=== PATIENT | male | born 1985 | race African-American/Black ===

== ENCOUNTER 2020-01-01 18:34 | Emergency (ER) | payer SELFPAY ==
[2020-01-01 18:39] VITALS: BP 173/104; PULSE 84; RESP 18; TEMP 36.6; O2SAT 99
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
[2020-01-01] MEDS: KETOROLAC (*BKC) 60 MG/2 ML VIAL IM (20:53)
[2020-01-01 21:05] VITALS: BP 142/96; PULSE 78; RESP 19; O2SAT 97
== END 2020-01-01 21:06 | disposition home or self-care (01) ==
PROVIDERS: Emergency Provider Emergency Medicine
DX: K08.89 Other specified disorders of teeth and supporting structures (principal)
CPT/HCPCS: 96372; 99283; J1885

== ENCOUNTER 2020-03-31 00:56 | Emergency (ER) | payer SELFPAY ==
--- NOTE | ~2020-03-31 | XR_ITS ---
EXAMINATION: XR chest 1V portable INDICATION: Shortness of breath TECHNIQUE: Portable AP chest at 0148 hours COMPARISON: None available FINDINGS: The lungs are free of acute opacities. There is no pleural effusion or pneumothorax. The ca rdiomediastinal silhouette is normal. IMPRESSION: 1. No acute cardiopulmonary abnormality. Reviewed, dictated and finalized at location [facility]. R [employer]
[2020-03-31 01:01] VITALS: BP 145/100; PULSE 104; RESP 18; TEMP 36.1; O2SAT 96
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
[2020-03-31 01:13] VITALS: BP 135/98; PULSE 92; RESP 22; O2SAT 95
[2020-03-31 01:25] VITALS: PULSE 82; RESP 20
[2020-03-31] MEDS: ALBUTEROL SULFATE NEB 2.5 MG/0.5 ML INH 5 MG INHALATION (01:25)
[2020-03-31 01:34] VITALS: PULSE 79; RESP 18
[2020-03-31 01:37] LABS: Basophils Absolute Auto 0.1 K/mm3 (0.0-0.1); Basophils Percent Auto 0.8 % (0.2-1.2); Eosinophils Absolute Auto 0.4 K/mm3 (0-0.3); Eosinophils Percent Auto 6.5 % (0-4.4); Hematocrit 44.5 % (42.0-52.0); Hemoglobin 14.6 g/dL (14.0-18.0); Immature Granulocyte Absolute 0.01 K/mm3 (0.00-0.031); Immature Granulocyte Percent A 0.2 % (0-0.5); Lymphocytes Absolute Auto 2.93 K/mm3 (0.9-3.2); Lymphocytes Percent Auto 44.2 % (18.3-44.2); Mean Corpuscular HGB Conc 32.8 g/dl (32-36); Mean Corpuscular Hemoglobin 26.9 pg (26-34); Mean Platelet Volume 11.3 fl (7.4-10.4); Monocytes Absolute Auto 0.4 K/mm3 (0.1-0.6); Monocytes Percent Auto 6.2 % (2.6-8.5); Neutrophils Absolute Auto 2.8 K/mm3 (1.3-6.7); Neutrophils Percent Auto 42.1 % (45.5-73.1); Platelet Count Result 219 k/mm3 (150-375); Red Blood Count 5.43 M/mm3 (4.6-6.20); Red Cell Distribution Width 12.8 % (11.5-14.5); White Blood Count 6.6 K/mm3 (4.5-10.0)
[2020-03-31 01:54] VITALS: BP 138/99; PULSE 82; RESP 20; O2SAT 97
[2020-03-31 01:55] LABS: NT Pro B Type Natriuretic Pept < 11 PG/ML (5-100)
[2020-03-31] MEDS: predniSONE 20 MG TABLET 40 MG PO (02:14)
[2020-03-31 02:20] LABS: Anion Gap 4 mmol/L (8-16); Blood Urea Nitrogen 12 mg/dL (9-20); Calcium 8.7 mg/dL (8.4-10.2); Carbon Dioxide 27 mmol/L (22-30); Chloride 108 mmol/L (98-107); Estimated CRCL calculation 141 ml/min; Estimated Glomerular Filt Rate > 60; Glucose 185 mg/dL (75-110); Potassium 4.1 mmol/L (3.4-5.0); Sodium 139 mmol/L (137-145)
[2020-03-31 02:37] VITALS: BP 134/90; PULSE 74; RESP 20; O2SAT 97
== END 2020-03-31 02:40 | disposition home or self-care (01) ==
PROVIDERS: Emergency Provider Emergency Medicine
DX: R06.2 Wheezing (principal); Z20.828 Contact with and (suspected) exposure to other viral communicable diseases
CPT/HCPCS: 36415; 71045; 80048; 83880; 85025; 94640; 99283; J7512

== ENCOUNTER 2021-03-04 18:57 | Observation (INO) | payer SELFPAY ==
--- NOTE | ~2021-03-04 | CT_ITS ---
EXAMINATION: CTA chest PE protocol DATE: 03/05/2021 00:26 INDICATION: Shortness of breath, chest pain, elevated d-dimer TECHNIQUE: Computed tomography angiography (CTA) of the chest was performed with 100 mL Omnipaque-350 intravenous contrast timed to evaluate the pulmonary arteries. Coronal maximum intensity projection 3D-reconstructions were created by the technologist. Automated exposure control and iterative reconst ruction technique were employed. Exam dose: 291.98 mGy-cm total exam DLP. COMPARISON: 03/04/2021 portable AP chest FINDINGS: There is diagnostic contrast enhancement of the pulmonary arteries and no evidence of pulmo nary embolism. No thoracic aortic aneurysm or dissection. Normal heart size. No pericardial or pleural effusion. No hilar or mediastinal mass lesion or lymphadenopathy. There are extensive patchy multifocal infiltrates throughout both lungs, greatest involvement of the right lower lobe, consistent with bilateral Covid pneumonia. Included skeletal structures are unremarkable. IMPRESSION: No evidence of pulmonary embolism Extensive patchy multifocal bilateral pulmonary infiltrates, likely due to Covid pneumonia Reviewed, dictated and finalized at [facility]. Reviewed, dictated and finalized at location A. IMPRESSION: No evidence of pulmonary embolism Extensive patchy multifocal bilateral pulmonary infiltrates, likely due to Covi d pneumonia
--- NOTE | ~2021-03-04 | XR_ITS ---
EXAMINATION: XR chest 1V portable EXAM DATE: 03/04/2021 19:35 INDICATION: cough, SOB, Fever X 2 Days, Hx Asthma . TECHNIQUE: Frontal and lateral projections of the chest obtained and reviewed. Comparison is made to prior examination from 03/31/2020. FINDINGS: There are small ill-defined bibasilar opacities most likely acute infectious process, poss ibly COVID pneumonia. No pneumothorax or pleural effusion. Cardiomediastinal silhouette is normal. Th ere are no osseous abnormalities identified. IMPRESSION: Small ill-defined basilar opacities could be developing acute infectious process such as COVID pneumonia Reviewed, dictated and finalized at location G. IMPRESSION: Small ill-defined basilar opacities could be developing acute infec tious process such as COVID pneumonia
[2021-03-04 19:01] VITALS: BP 144/79; PULSE 113; RESP 18; TEMP 35.8; O2SAT 96
--- NOTE | 2021-03-04 20:27 | ECG_ITS ---
Measurements Intervals [place] Rate: 101 P: 47 LA: 104 QRS: 38 QRSD: 77 T: 34 QT: 325 QTc: 421 Interpretive Statements SINUS TACHYCARDIA WITH SHORT LA INTERVAL POSSIBLE LEFT ATRIAL ENLARGEMENT INCOMPLETE RIGHT BUNDLE BRANCH BLOCK BASELINE ARTIFACT- II, III, AVF, V3-V6 BORDERLINE ECG Electronically Signed On 03-05-2021 7:32:37 CDT by Ender Nicolas D.O.
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
[2021-03-04] MEDS: ALBUTEROL SULFATE (*SP) AEROSOL 1 PUFF 4 PUFF INHALATION (20:58)
[2021-03-04 21:14] VITALS: BP 138/92; PULSE 108; RESP 22; O2SAT 96
[2021-03-04 21:33] VITALS: TEMP 38.2
[2021-03-04] MEDS: SODIUM CHLORIDE 0.9% IV 1,000 ML 999 ML IV CONT ×2 (21:34→23:55)
[2021-03-04 21:53] LABS: Basophils Percent Auto 0.3 % (0.2-1.2); Eosinophils Percent Auto 0.1 % (0-4.4); Hematocrit 48.4 % (42.0-52.0); Hemoglobin 15.9 g/dL (14.0-18.0); Immature Granulocyte Absolute 0.03 K/mm3 (0.00-0.031); Immature Granulocyte Percent A 0.4 % (0-0.5); Lymphocytes Absolute Auto 2.11 K/mm3 (0.9-3.2); Lymphocytes Percent Auto 31.4 % (18.3-44.2); Mean Corpuscular HGB Conc 32.9 g/dl (32-36); Mean Corpuscular Hemoglobin 27.9 pg (26-34); Mean Corpuscular Volume 84.9 fl (80-100); Monocytes Absolute Auto 0.5 K/mm3 (0.1-0.6); Neutrophils Absolute Auto 4.1 K/mm3 (1.3-6.7); Neutrophils Percent Auto 60.8 % (45.5-73.1); Platelet Count Result 163 k/mm3 (150-375); Red Cell Distribution Width 11.9 % (11.5-14.5); White Blood Count 6.7 K/mm3 (4.5-10.0)
[2021-03-04 22:04] LABS: INR 0.8; Prothrombin Time 11.2 Seconds (11.1-14.7)
[2021-03-04 22:05] LABS: Partial Thromboplastin Time 22.9 SECONDS (22.3-36.8)
[2021-03-04 22:07] LABS: D Dimer 0.49 ug/mL (<0.48)
[2021-03-04 22:10] VITALS: BP 138/90; PULSE 95; RESP 23; O2SAT 97
[2021-03-04 22:18] LABS: Alanine Aminotransferase 17 U/L (4-50); Albumin Level 4.4 g/dL (3.5-5.1); Alkaline Phosphatase 150 U/L (38-126); Anion Gap 17 mmol/L (8-16); Aspartate Amino Transferase 27 U/L (17-59); Bilirubin,Total 0.9 mg/dL (0.2-1.3); Blood Urea Nitrogen 10 mg/dL (9-20); Calcium 9.6 mg/dL (8.4-10.2); Carbon Dioxide 20 mmol/L (22-30); Chloride 101 mmol/L (98-107); Estimated CRCL calculation 110 ml/min; Estimated Glomerular Filt Rate > 60; Glucose 411 mg/dL (65-110); Lactate Dehydrogenase 684 U/L (313-618); Potassium 4.4 mmol/L (3.4-5.0); Sodium 138 mmol/L (137-145)
[2021-03-04 22:21] LABS: Troponin I < 0.012 ng/mL (0.000-0.034)
[2021-03-04 22:47] VITALS: BP 130/87; PULSE 98; RESP 24; TEMP 37.2; O2SAT 98
[2021-03-04 23:21] LABS: Procalcitonin 0.1 ng/mL
[2021-03-04 23:54] VITALS: BP 107/83; PULSE 85; RESP 19; O2SAT 97
--- NOTE | 2021-03-04 23:54 | PC.NURSE ---
per lab we could not get an A1C as the machine states it is reading too high. Our high end is 14.
[2021-03-05] VITALS (8 sets, daily range): BP systolic 110–128; BP diastolic 63–87; PULSE 91–96; RESP 16–22; TEMP 36.7–38.3; O2SAT 93–99; BMI 28.5
[2021-03-05 00:01] LABS: Glucose Point of Care 341 mg/dl (65-105)
[2021-03-05 00:11] LABS: Add Urine Microscopic? YES; Appearance Urine Clear (Clear); Bilirubin Urine Negative (Negative); Blood Urine Negative (Negative); Color Urine Colorless (Yellow); Glucose Urine UA 3+ mg/dL (Negative); Ketones Urine 2+ mg/dL (Negative); Leukocyte Esterase Ur Negative LEU/UL (Negative); Mucus Urine Rare /lpf; Nitrate Urine Negative (Negative); Protein Urine Negative (Negative); RBC Urine 0-2 /hpf (0-2); Urobilinogen Urine Negative mg/dL (<2.0)
[2021-03-05] MEDS: INSULIN HUMAN REGULAR (*BKC) 100 UNITS/ML 9 UNITS IV PUSH (00:21)
[2021-03-05 01:00] LABS: Anion Gap 14 mmol/L (8-16); Blood Urea Nitrogen 9 mg/dL (9-20); Calcium 8.4 mg/dL (8.4-10.2); Carbon Dioxide 21 mmol/L (22-30); Chloride 106 mmol/L (98-107); Estimated CRCL calculation 110 ml/min; Estimated Glomerular Filt Rate > 60; Glucose 292 mg/dL (65-110); Potassium 3.9 mmol/L (3.4-5.0); Sodium 141 mmol/L (137-145)
[2021-03-05 01:10] LABS: Cholesterol 184 mg/dL (0-200); HDL Direct 34 mg/dL; Triglycerides 373 mg/dL (<150)
[2021-03-05 01:21] LABS: LDL Cholesterol Direct 46 mg/dL
[2021-03-05 01:25] LABS: Glucose Point of Care 264 mg/dl (65-105)
--- NOTE | 2021-03-05 03:24 | ADMGEN ---
This patient, Sylvain Tapia, was admitted to 3 [facility] Surg Room 332-01. Patient/family oriented to hospital policies and general routines including ID bracelet, bed and alarms, visiting hours, pain management, procedures, bathroom and other care routines, personal items, smoking policy, room service/diet, and visiting hours. Information on how to activate the Rapid Response Team has been discussed. Patient/Family are encouraged to report perceived risks to care and to ask questions if they do not understand what they are told or what they should do.
[2021-03-05 07:59] LABS: Glucose Point of Care 268 mg/dl (65-105)
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
[2021-03-05] MEDS: INSULIN ASPART (*BKC) 100 UNITS/ML SUB-Q ×3 (09:30→17:34)
[2021-03-05 12:20] LABS: Glucose Point of Care 228 mg/dl (65-105)
[2021-03-05 17:27] LABS: Glucose Point of Care 260 mg/dl (65-105)
[2021-03-05 17:41] LABS: SARS-CoV-2 RNA PCR Positive
[2021-03-05 19:17] LABS: Hemoglobin A1C > 14.0 % (<5.7)
[2021-03-05] MEDS: ACETAMINOPHEN 325 MG TABLET 650 MG PO (21:11)
[2021-03-05] MEDS: levoFLOXacin 250 MG/D5W 50 ML 250 MG/50 ML BAG 50 MG IVPB (21:11)
[2021-03-05] MEDS: INSULIN GLARGINE (*BKC) 100 UNITS/ML 10 UNITS SUB-Q (21:23)
[2021-03-05 21:55] LABS: Glucose Point of Care 228 mg/dl (65-105)
[2021-03-06 04:00] VITALS: BP 129/77; PULSE 95; RESP 18; TEMP 37.4; O2SAT 94
[2021-03-06 06:54] LABS: Basophils Percent Auto 0.3 % (0.2-1.2); Hematocrit 45.2 % (42.0-52.0); Hemoglobin 14.8 g/dL (14.0-18.0); Immature Granulocyte Absolute 0.02 K/mm3 (0.00-0.031); Immature Granulocyte Percent A 0.3 % (0-0.5); Lymphocytes Percent Auto 20.2 % (18.3-44.2); Mean Corpuscular HGB Conc 32.7 g/dl (32-36); Mean Corpuscular Hemoglobin 27.6 pg (26-34); Mean Corpuscular Volume 84.2 fl (80-100); Mean Platelet Volume 12.4 fl (7.4-10.4); Monocytes Absolute Auto 0.4 K/mm3 (0.1-0.6); Monocytes Percent Auto 5.4 % (2.6-8.5); Neutrophils Absolute Auto 4.7 K/mm3 (1.3-6.7); Neutrophils Percent Auto 73.8 % (45.5-73.1); Platelet Count Result 170 k/mm3 (150-375); Red Blood Count 5.37 M/mm3 (4.6-6.20); Red Cell Distribution Width 11.9 % (11.5-14.5); White Blood Count 6.4 K/mm3 (4.5-10.0)
[2021-03-06 07:14] LABS: Anion Gap 17 mmol/L (8-16); Blood Urea Nitrogen 7 mg/dL (9-20); Carbon Dioxide 16 mmol/L (22-30); Chloride 104 mmol/L (98-107); Estimated CRCL calculation 110 ml/min; Estimated Glomerular Filt Rate > 60; Glucose 236 mg/dL (65-110); Potassium 3.9 mmol/L (3.4-5.0); Sodium 137 mmol/L (137-145)
[2021-03-06 08:00] VITALS: BP 131/82; PULSE 98; RESP 16; TEMP 37.7; O2SAT 97
[2021-03-06 08:12] LABS: Glucose Point of Care 225 mg/dl (65-105)
[2021-03-06] MEDS: INSULIN ASPART (*BKC) 100 UNITS/ML SUB-Q ×2 (08:43→12:42)
[2021-03-06] MEDS: ENOXAPARIN 40 MG/0.4 ML SYRINGE SUB-Q (08:44)
[2021-03-06 12:00] VITALS: BP 130/80; PULSE 92; RESP 16; TEMP 37.6; O2SAT 96
[2021-03-06 12:37] LABS: Glucose Point of Care 257 mg/dl (65-105)
[2021-03-06 12:42] VITALS: TEMP 37.6
[2021-03-06] MEDS: ACETAMINOPHEN 325 MG TABLET 650 MG PO (12:42)
--- NOTE | 2021-03-06 14:08 | PM.DS ---
DS: Admitting Diagnosis Discharge Date 03/06/2021 Admitting Diagnosis Cough fever DS: Discharge Diagnosis Discharge Diagnosis (1) Pneumonia: Qualifiers: Laterality: bilateral Lung location: lower lobe of lung Pneumonia type: due to unspecified organism Qualified Code(s): J18.9 - Pneumonia, unspecified organism Code(s): J18.9 - Pneumonia, unspecified organism Status: Acute (2) Diabetes mellitus: Qualifiers: Diabetes mellitus complication status: with hyperglycemia Diabetes mellitus custodial insulin use: without termite treater helper use Diabetes mellitus type: type 2 Qualified Code(s): E11.65 - Type 2 diabetes mellitus with hyperglycemia Code(s): E11.9 - Type 2 diabetes mellitus without complications Status: Acute (3) Pneumonia due to COVID-19 virus: Code(s): U07.1 - COVID-19; J12.82 - Pneumonia due to coronavirus disease 2019 Status: Acute DS: Summary Hospital Course Hospital Course: # Acute COVID 19 infection COVID infection and positive symptomatology consistent with COVID infection WBC count has been normal and super added bacterial infection is less likely this point will stop his Levaquin. Patient however is not hypoxic and does not qualify for any further treatment Decadron remdesivir discussed symptomatic treatment and isolation as per guidelines suggested patient he verbalized understanding and concurs with the plan # Elevated D-dimer CTA negative for PE #Hyperglycemia no prior history of diabetes likely has underlying undiagnosed diabetes. On Lantus and sliding scale insulin will continue same may switch it to oral at discharge. Depending on the A1c resolved. A1c came back at more than 14 likely has underlying diabetes extensively discussed the treatment with medications and diet control Diet plan guidance provided to the patient Since self-pay, will start with an NPH regular insulin 70/30 15 units units twice a day Will also add metformin 500 mg twice daily at discharge DVT prophylaxis Lovenox Status at Discharge Functional status at discharge: independent ambulation Time Spent with Patient Time attestation: Total time spent providing and/or coordinating discharge services: 50 minutes DS: Data Data Completed and Pending Labs on day of discharge: Labs from last 24 hours 03/06/21 03/06/21 03/06/21 12:27 07:59 05:48 WBC RBC Hgb Hct MCV MCH MCHC RDW Plt Count MPV Immature Gran % (Auto) Neut % (Auto) Lymph % (Auto) [place] % (Auto) Eos % (Auto) Baso % (Auto) Lymph # (Auto) [place] # (Auto) Eos # (Auto) Baso # (Auto) Abs Immat Gran (auto) Absolute Neuts (auto) Absolute Nucleated RBC Nucleated RBC % Sodium 137 Potassium 3.9 Chloride 104 Carbon Dioxide 16 L Anion Gap 17 H BUN 7 L Creatinine 0.80 Estim Creat Clear Calc 110 Estimated GFR > 60 Glucose 236 H POC Capillary Glucose 257 H 225 H Hemoglobin A1c Calcium 9.0 SARS-CoV-2 RNA (RT-PCR) 03/06/21 03/05/21 03/05/21 05:48 21:21 17:24 WBC 6.4 RBC 5.37 Hgb 14.8 Hct 45.2 MCV 84.2 MCH 27.6 MCHC 32.7 RDW 11.9 Plt Count 170 MPV 12.4 H Immature Gran % (Auto) 0.3 Neut % (Auto) 73.8 H Lymph % (Auto) 20.2 [place] % (Auto) 5.4 Eos % (Auto) 0.0 Baso % (Auto) 0.3 Lymph # (Auto) 1.30 [place] # (Auto) 0.4 Eos # (Auto) 0.0 Baso # (Auto) 0.0 Abs Immat Gran (auto) 0.02 Absolute Neuts (auto) 4.7 Absolute Nucleated RBC 0.0 Nucleated RBC % 0.0 Sodium Potassium Chloride Carbon Dioxide Anion Gap BUN Creatinine Estim Creat Clear Calc Estimated GFR Glucose POC Capillary Glucose 228 H Hemoglobin A1c > 14.0 H Calcium SARS-CoV-2 RNA (RT-PCR) 03/05/21 03/04/21 17:18 21:39 WBC RBC Hgb Hct MCV MCH MCHC RDW Plt Count MPV Immature Gran % (Aut
== END 2021-03-06 14:39 | disposition home or self-care (01) ==
LOC: ANHED 03-05 00:44 → ANH3MEDSUR 03-05 12:12
PROVIDERS: Emergency Medicine; Physician Assistant; Admitting Provider Internal Medicine; Emergency Provider Emergency Medicine; Visit Provider Internal Medicine
DX: U07.1 COVID-19 (principal); J12.82 Pneumonia due to coronavirus disease 2019; E11.65 Type 2 diabetes mellitus with hyperglycemia; R06.02 Shortness of breath
CPT/HCPCS: 36415; 71045; 71275; 80048; 80053; 80061; 81001; 82728; 82948; 83036; 83615; 84145; 84484; 85025; 85380; 85610; 85730; 93005; 94640; 96365; 96366; 96372; 96374; 99285; A9270; C9803; G0378; G0379; J0131; J1100; J1650; J1815; J1956; J7030; Q9967; U0003; U0005

== ENCOUNTER 2021-06-26 14:57 | Inpatient (IN) | payer MEDICAID, SELFPAY ==
[2021-06-26] VITALS (25 sets, daily range): BP systolic 102–139; BP diastolic 49–102; PULSE 65–84; RESP 16–18; TEMP 36.4–36.9; O2SAT 94–100
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
--- NOTE | ~2021-06-26 | XR_ITS ---
EXAMINATION: XR abdomen obstructive series DATE: 07/01/2021 08:06 INDICATION: Partial small bowel obstruction. TECHNIQUE: Upright and supine views of the abdomen were obtained. COMPARISON: Abdomen radiographs 06/30/2021 FINDINGS: There are multiple dilated loops of small bowel. The colon is decompressed. There is oral c ontrast in small bowel and colon. Shrapnel overlies right pelvis. The nasogastric tube tip is in the stomach. No free intraperitoneal gas. IMPRESSION: 1. Persistently dilated small bowel containing oral contrast, consistent with small bowel obstruction . Reviewed, dictated and finalized at location E. DER AND PRESIDENT IMPRESSION: 1. Persistently dilated small bowel containing oral contrast, consistent with s mall bowel obstruction.
--- NOTE | ~2021-06-26 | XR_ITS ---
EXAMINATION: XR abdomen NG/feed tube rechec DATE: 06/27/2021 10:16 INDICATION: Nasogastric tube advancement. TECHNIQUE: An upright view of the abdomen was obtained. COMPARISON: Chest single view 06/26/2021 FINDINGS: There are multiple dilated loops of small bowel. The lower abdomen is excluded. The nasogas tric tube tip is in the stomach. IMPRESSION: 1. Nasogastric tube tip in the stomach. 2. Worsened small bowel dilatation, consistent with small bowel obstruction. Reviewed, dictated and finalized at location A. TRICAL LOGGING ENGINEER
--- NOTE | ~2021-06-26 | XR_ITS ---
EXAMINATION: XR abdomen obstructive series DATE: 06/30/2021 07:40 INDICATION: Small bowel obstruction. TECHNIQUE: Upright and supine views of the abdomen on 3 radiographs were obtained. COMPARISON: Small bowel series 06/29/2021 FINDINGS: There are multiple dilated loops of small bowel. There is oral contrast in small bowel and colon. No free intraperitoneal gas. The nasogastric tube tip is in the stomach. IMPRESSION: 1. Persistently dilated small bowel with slow transit of oral contrast, consistent with partial small bowel traction versus adynamic ileus. Reviewed, dictated and finalized at location E. TER BLOCK LAYER IMPRESSION: 1. Persistently dilated small bowel with slow transit of oral contrast, consist ent with partial small bowel traction versus adynamic ileus.
--- NOTE | ~2021-06-26 | XR_ITS ---
EXAMINATION: XR abdomen/kub 1V DATE: 06/28/2021 09:54 INDICATION: Small bowel obstruction. TECHNIQUE: A supine view of the abdomen was obtained. COMPARISON: Abdomen radiograph 06/27/2021, CT abdomen and pelvis 06/26/2021 FINDINGS: There are multiple dilated loops of small bowel. The colon is decompressed. Shrapnel overli es right pelvis. IMPRESSION: 1. Persistently dilated small bowel, consistent with small bowel obstruction. Reviewed, dictated and finalized at location A. S APPRENTICE
--- NOTE | ~2021-06-26 | XR_ITS ---
EXAMINATION: XR abdomen/kub 1V EXAM DATE: 07/01/2021 22:48 INDICATION: ng placement . TECHNIQUE: Frontal projection(s) of the abdomen for interpretation. Comparison is made to prior exami nation from earlier same day. FINDINGS: Nasogastric tube is in position. There are multiple loops of significantly distended small bowel. Probably some of the contrast present in these loops earlier image has passed into the colon. There is no organomegaly. IMPRESSION: Feeding tube in position. Persistent significantly distended small bowel loops, ileus or partial obstruction. Reviewed, dictated and finalized at location G. T FAMILY HOME PROGRAM MANAGER
--- NOTE | ~2021-06-26 | XR_ITS ---
XR abdomen NG/feed tube rechec DATE: 06/26/2021 18:59 INDICATION: NG tube placement TECHNIQUE: Portable AP view on 06/26/2021 at 1855 hours COMPARISON: 06/26/2021 CT abdomen pelvis FINDINGS: NG tube in the proximal stomach, the proximal side port 3.5 cm distal to the diaphragmatic hiatus. IMPRESSION: NG tube in proximal stomach Reviewed, dictated and finalized at [facility]. Reviewed, dictated and finalized at location A. EACH TEAM MEMBER IMPRESSION: NG tube in proximal stomach
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
[2021-06-26 15:04] LABS: Glucose Point of Care 258 mg/dl (65-105)
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
[2021-06-26] MEDS: MORPHINE SULFATE (*CRX) 4 MG/ML INJ IV PUSH (16:29)
[2021-06-26] MEDS: ONDANSETRON INJ 4 MG/2 ML VIAL IV PUSH (16:29)
[2021-06-26] MEDS: LACTATED RINGERS 1,000 ML 999 ML IV CONT (16:29)
[2021-06-26 16:30] LABS: Basophils Absolute Auto 0.1 K/mm3 (0.0-0.1); Basophils Percent Auto 0.5 % (0.2-1.2); Eosinophils Absolute Auto 0.1 K/mm3 (0-0.3); Eosinophils Percent Auto 0.5 % (0-4.4); Hematocrit 50.3 % (42.0-52.0); Hemoglobin 16.4 g/dL (14.0-18.0); Immature Granulocyte Absolute 0.02 K/mm3 (0.00-0.031); Immature Granulocyte Percent A 0.2 % (0-0.5); Lymphocytes Absolute Auto 1.96 K/mm3 (0.9-3.2); Lymphocytes Percent Auto 19.7 % (18.3-44.2); Mean Corpuscular HGB Conc 32.6 g/dl (32-36); Mean Corpuscular Hemoglobin 27.1 pg (26-34); Mean Platelet Volume 10.7 fl (7.4-10.4); Monocytes Absolute Auto 0.4 K/mm3 (0.1-0.6); Monocytes Percent Auto 3.8 % (2.6-8.5); Neutrophils Absolute Auto 7.5 K/mm3 (1.3-6.7); Neutrophils Percent Auto 75.3 % (45.5-73.1); Platelet Count Result 252 k/mm3 (150-375); Red Blood Count 6.06 M/mm3 (4.6-6.20); White Blood Count 9.9 K/mm3 (4.5-10.0)
[2021-06-26 16:33] LABS: Add Urine Microscopic? YES; Appearance Urine Clear (Clear); Bilirubin Urine Negative (Negative); Blood Urine Negative (Negative); Color Urine Yellow (Yellow); Glucose Urine UA 3+ mg/dL (Negative); Ketones Urine 1+ mg/dL (Negative); Leukocyte Esterase Ur Negative LEU/UL (Negative); Mucus Urine Rare /lpf; Nitrate Urine Negative (Negative); Protein Urine Negative (Negative); RBC Urine 0-2 /hpf (0-2); Urobilinogen Urine Negative mg/dL (<2.0); WBC Urine 0-3 /hpf
[2021-06-26 16:49] LABS: Specific Grav Ur 1.041 (1.001-1.035)
[2021-06-26 17:02] LABS: Alanine Aminotransferase 17 U/L (4-50); Albumin Level 4.1 g/dL (3.5-5.1); Alkaline Phosphatase 135 U/L (38-126); Anion Gap 4 mmol/L (8-16); Aspartate Amino Transferase 20 U/L (17-59); Bilirubin,Total 0.7 mg/dL (0.2-1.3); Blood Urea Nitrogen 14 mg/dL (9-20); Calcium 9.8 mg/dL (8.4-10.2); Carbon Dioxide 27 mmol/L (22-30); Chloride 107 mmol/L (98-107); Estimated CRCL calculation 106 ml/min; Estimated Glomerular Filt Rate > 60; Glucose 229 mg/dL (65-110); Lipase 90 U/L (23-300); Potassium 3.9 mmol/L (3.4-5.0); Sodium 138 mmol/L (137-145)
[2021-06-26] MEDS: LIDOCAINE HCL 2% GEL UROJET 10 ML PKG (18:54)
--- NOTE | 2021-06-26 18:55 | PC.NURSE ---
NG tube placed to right nare. Tolerated procedure well. Topical lidocaine used for procedure.
[2021-06-26] MEDS: SODIUM CHLORIDE 0.9% IV 1,000 ML 125 ML IV CONT (19:54)
[2021-06-26 20:22] LABS: Glucose Point of Care 159 mg/dl (65-105)
[2021-06-26 22:29] LABS: SARS-CoV-2 RNA PCR Negative
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
--- NOTE | 2021-06-26 23:19 | PC.NURSE ---
Pt c/o abdominal pain, RN provided morphine IV for breakthrough pain and Zofran 4mg IV PRN.
--- NOTE | 2021-06-26 23:58 | ADMGEN ---
This patient, Sylvain Tapia, was admitted to 3 [facility] Room 322-01. Patient/family oriented to hospital policies and general routines including ID bracelet, bed and alarms, visiting hours, pain management, procedures, bathroom and other care routines, personal items, smoking policy, room service/diet, and visiting hours. Information on how to activate the Rapid Response Team has been discussed. Patient/Family are encouraged to report perceived risks to care and to ask questions if they do not understand what they are told or what they should do.
[2021-06-27] MEDS: SODIUM CHLORIDE 0.9% IV 1,000 ML 125 ML IV CONT ×2 (02:11→22:49)
[2021-06-27] MEDS: MORPHINE SULFATE (*CRX) 4 MG/ML INJ IV PUSH ×5 (02:11→17:21)
[2021-06-27] MEDS: ONDANSETRON INJ 4 MG/2 ML VIAL IV PUSH ×4 (02:16→21:43)
[2021-06-27 06:00] VITALS: BP 155/90; PULSE 73; RESP 18; TEMP 36.3; O2SAT 99
[2021-06-27 06:15] LABS: Glucose Point of Care 184 mg/dl (65-105)
[2021-06-27 07:56] LABS: Hematocrit 45.9 % (42.0-52.0); Hemoglobin 14.8 g/dL (14.0-18.0); Mean Corpuscular HGB Conc 32.2 g/dl (32-36); Mean Corpuscular Hemoglobin 27.4 pg (26-34); Mean Corpuscular Volume 84.8 fl (80-100); Mean Platelet Volume 10.9 fl (7.4-10.4); Platelet Count Result 212 k/mm3 (150-375); Red Blood Count 5.41 M/mm3 (4.6-6.20); Red Cell Distribution Width 12.1 % (11.5-14.5); White Blood Count 9.5 K/mm3 (4.5-10.0)
[2021-06-27 08:00] VITALS: PULSE 73; RESP 18; O2SAT 99
[2021-06-27 08:05] LABS: Lactic Acid Reflex 0.7 mmol/L (0.7-2.1)
[2021-06-27 08:14] LABS: Alanine Aminotransferase 15 U/L (4-50); Alkaline Phosphatase 107 U/L (38-126); Anion Gap 7 mmol/L (8-16); Aspartate Amino Transferase 22 U/L (17-59); Bilirubin,Total 0.8 mg/dL (0.2-1.3); Blood Urea Nitrogen 11 mg/dL (9-20); Carbon Dioxide 25 mmol/L (22-30); Chloride 104 mmol/L (98-107); Estimated CRCL calculation 106 ml/min; Estimated Glomerular Filt Rate > 60; Glucose 184 mg/dL (65-110); Magnesium 1.7 mg/dL (1.6-2.3); Sodium 136 mmol/L (137-145)
--- NOTE | 2021-06-27 09:21 | PM.IMPN ---
Progress Note: A&P Assessment and Plan (1) Partial obstruction of small intestine: Code(s): K56.600 - Partial intestinal obstruction, unspecified as to cause Status: Acute Assessment and Plan: -Surgery has been consulted. Further recommendation per surgery. -most likely the patient will be able to have this resolved with conservative measures. -Continue with NG tube with low intermittent suction. -Repeat obstructive studies in the a.m.. -Continue with IV fluids and pain management. (2) Hyperglycemia due to diabetes mellitus: Code(s): E11.65 - Type 2 diabetes mellitus with hyperglycemia Status: Acute Assessment and Plan: -Accu-Cheks every 6 hours with sliding scale insulin. -A1c >14 Subjective Date/time seen: 06/27/21 09:21 Interval history: 35 yo male w/ hx of DM admitted for partial SBO. Pt has NG tube in place. Still having mid abdominal pain. No N/V. Last BM was 3 days ago. No cp/sob. Review of Systems Review of Systems: All systems reviewed & are unremarkable except as noted in HPI and below Exam Narrative: General: No acute distress, non toxic appearing Eyes: PERRL, no scleral icterus HEENT: NCAT, external ears normal, MMM, NG tube in place Respiratory: No respiratory distress, Lungs CTA bilaterally, no wheezing Cardiovascular: RRR, no murmur Abdominal: Soft, mild epigastric ttp, non distended, no rebound or guarding Musculoskeletal: Moves all 4 extremities, no edema Neurological: A/Ox3, speech normal, no facial asymmetry Skin: Warm, dry, no rashes Psychiatric: Normal affect, normal mood Objective Data Vital Signs Vital Signs: Vital Signs - 24 hr 06/26/21 14:59 06/26/21 16:25 06/26/21 16:26 Temperature 98.3 F Pulse Rate 79 Respiratory Rate 16 Blood Pressure 132/98 H 134/98 H Pulse Oximetry 99 99 100 06/26/21 16:30 06/26/21 16:32 06/26/21 16:45 Temperature Pulse Rate Respiratory Rate Blood Pressure 135/99 H Pulse Oximetry 100 100 97 06/26/21 17:00 06/26/21 17:02 06/26/21 17:15 Temperature Pulse Rate Respiratory Rate Blood Pressure 139/102 H Pulse Oximetry 95 97 97 06/26/21 17:30 06/26/21 17:32 06/26/21 17:48 Temperature Pulse Rate Respiratory Rate Blood Pressure 135/91 H Pulse Oximetry 99 100 98 06/26/21 17:49 06/26/21 18:01 06/26/21 18:02 Temperature Pulse Rate Respiratory Rate Blood Pressure 133/96 H 135/90 Pulse Oximetry 98 99 98 06/26/21 18:15 06/26/21 18:30 06/26/21 18:31 Temperature Pulse Rate Respiratory Rate Blood Pressure 129/86 Pulse Oximetry 99 100 99 06/26/21 18:45 06/26/21 19:01 06/26/21 19:02 Temperature Pulse Rate Respiratory Rate Blood Pressure Pulse Oximetry 99 100 100 06/26/21 19:15 06/26/21 19:56 06/26/21 23:27 Temperature 98.2 F 98.5 F Pulse Rate 65 73 Respiratory Rate 18 18 Blood Pressure 133/95 H 128/86 Pulse Oximetry 99 99 96 06/26/21 23:45 06/27/21 06:00 Temperature 97.5 F L 97.3 F L Pulse Rate 84 73 Respiratory Rate 18 18 Blood Pressure 102/49 L 155/90 H Pulse Oximetry 94 99 Intake/Output Intake/Output: Intake & Output 06/24/21 06/25/21 06/26/21 06/27/21 23:59 23:59 23:59 23:59 Intake Total 1000 1000 Balance 1000 1000 Meds/Results Medications: Active Medications Generic Name Dose Route Start Last Admin Trade Name Freq PRN Reason Stop Dose Admin Albuterol 2 puff 06/27/21 00:27 Albuterol Sulfate (*Sp) Aerosol 1 Puff INHALATION Q6HRT PRN Shortness Of Breath Dextrose 12.5 gm 06/27/21 00:24 Dextrose 50% 25 Gm/50 Ml Syringe IV PUSH PRN PRN Hypoglycemia Protocol Enoxaparin Sodium 40 mg 06/27/21 09:00 Enoxaparin 40 Mg/0.4 Ml Syringe SUB-Q DAILY EFRAIN Glucagon 1 mg 06/27/21 00:24 Glucagon For Inj 1 Mg Vial IM PRN PRN Hypoglycemia Protocol Glucose 15 gm 06/27/21 00:24
[2021-06-27] MEDS: PANTOPRAZOLE SODIUM IV 40 MG VIAL IV PUSH (09:39)
[2021-06-27] MEDS: ENOXAPARIN 40 MG/0.4 ML SYRINGE SUB-Q (09:39)
[2021-06-27 10:05] LABS: Thyroid Stimulating Hormone Reflex 0.318 uIU/mL (0.465-4.68)
[2021-06-27 10:20] LABS: Hemoglobin A1C > 14.0 % (<5.7)
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
[2021-06-27 11:36] LABS: Free T4 Free Thyroxine Reflex 1.22 ng/dL (0.78-2.19)
[2021-06-27 11:54] LABS: Glucose Point of Care 176 mg/dl (65-105)
[2021-06-27 12:49] LABS: Total Triiodothyronine (T3) 0.85 NG/ML (0.97-1.69)
[2021-06-27 15:47] VITALS: BP 130/50; PULSE 75; RESP 20; TEMP 36.7; O2SAT 98
[2021-06-27] MEDS: MORPHINE SULFATE (*CRX) 2 MG/ML INJ IV PUSH (21:43)
[2021-06-27 22:00] VITALS: BP 122/75; PULSE 67; RESP 18; TEMP 37.1; O2SAT 96
[2021-06-27 22:14] LABS: Glucose Point of Care 190 mg/dl (65-105)
[2021-06-28] MEDS: MORPHINE SULFATE (*CRX) 4 MG/ML INJ IV PUSH ×3 (00:02→19:36)
[2021-06-28 03:04] LABS: Glucose Point of Care 213 mg/dl (65-105)
[2021-06-28 04:38] VITALS: O2SAT 96
[2021-06-28 05:50] VITALS: BP 140/88; PULSE 67; RESP 18; TEMP 37; O2SAT 98
[2021-06-28] MEDS: SODIUM CHLORIDE 0.9% IV 1,000 ML 125 ML IV CONT ×3 (05:52→23:14)
[2021-06-28 05:54] LABS: Glucose Point of Care 186 mg/dl (65-105)
[2021-06-28] MEDS: MORPHINE SULFATE (*CRX) 2 MG/ML INJ IV PUSH (06:05)
[2021-06-28 07:50] LABS: Glucose Point of Care 173 mg/dl (65-105)
[2021-06-28 08:00] VITALS: PULSE 74; RESP 16; O2SAT 100
[2021-06-28 08:03] LABS: Basophils Percent Auto 0.3 % (0.2-1.2); Eosinophils Absolute Auto 0.1 K/mm3 (0-0.3); Eosinophils Percent Auto 0.7 % (0-4.4); Hematocrit 45.7 % (42.0-52.0); Hemoglobin 14.7 g/dL (14.0-18.0); Immature Granulocyte Absolute 0.02 K/mm3 (0.00-0.031); Immature Granulocyte Percent A 0.2 % (0-0.5); Lymphocytes Absolute Auto 1.72 K/mm3 (0.9-3.2); Lymphocytes Percent Auto 19.7 % (18.3-44.2); Mean Corpuscular HGB Conc 32.2 g/dl (32-36); Mean Corpuscular Hemoglobin 27.5 pg (26-34); Mean Corpuscular Volume 85.4 fl (80-100); Mean Platelet Volume 11.1 fl (7.4-10.4); Monocytes Absolute Auto 0.6 K/mm3 (0.1-0.6); Monocytes Percent Auto 7.1 % (2.6-8.5); Neutrophils Absolute Auto 6.3 K/mm3 (1.3-6.7); Platelet Count Result 216 k/mm3 (150-375); Red Blood Count 5.35 M/mm3 (4.6-6.20); Red Cell Distribution Width 12.1 % (11.5-14.5); White Blood Count 8.7 K/mm3 (4.5-10.0)
[2021-06-28 08:10] LABS: Alanine Aminotransferase 14 U/L (4-50); Albumin Level 3.9 g/dL (3.5-5.1); Alkaline Phosphatase 107 U/L (38-126); Anion Gap 6 mmol/L (8-16); Aspartate Amino Transferase 16 U/L (17-59); Bilirubin,Total 1.1 mg/dL (0.2-1.3); Blood Urea Nitrogen 12 mg/dL (9-20); Carbon Dioxide 25 mmol/L (22-30); Chloride 105 mmol/L (98-107); Estimated CRCL calculation 105 ml/min; Estimated Glomerular Filt Rate > 60; Glucose 185 mg/dL (65-110); Sodium 136 mmol/L (137-145)
[2021-06-28] MEDS: PANTOPRAZOLE SODIUM IV 40 MG VIAL IV PUSH (08:54)
[2021-06-28] MEDS: ENOXAPARIN 40 MG/0.4 ML SYRINGE SUB-Q (08:54)
--- NOTE | 2021-06-28 11:08 | PM.IMPN ---
Progress Note: A&P Assessment and Plan (1) Partial obstruction of small intestine: Code(s): K56.600 - Partial intestinal obstruction, unspecified as to cause Status: Acute Assessment and Plan: -Surgery has been consulted. Further recommendation per surgery. -most likely the patient will be able to have this resolved with conservative measures. -Continue with NG tube -Serial obstructive studies -Continue with IV fluids and pain management (2) Hyperglycemia due to diabetes mellitus: Code(s): E11.65 - Type 2 diabetes mellitus with hyperglycemia Status: Acute Assessment and Plan: -Accu-Cheks every 6 hours with sliding scale insulin. -A1c >14 Subjective Date/time seen: 06/28/21 11:08 Interval history: 35 yo male w/ hx of DM admitted for partial SBO. Pt has NG tube in place. Still having 5/10 mid abdominal pain. No N/V. Last BM was 4 days ago. No cp/sob. Review of Systems Review of Systems: All systems reviewed & are unremarkable except as noted in HPI and below Exam Narrative: General: No acute distress, non toxic appearing Eyes: PERRL, no scleral icterus HEENT: NCAT, external ears normal, MMM, NG tube in place Respiratory: No respiratory distress, Lungs CTA bilaterally, no wheezing Cardiovascular: RRR, no murmur Abdominal: Soft, mild epigastric ttp, non distended, no rebound or guarding, hypoactive bowel sounds Musculoskeletal: Moves all 4 extremities, no edema Neurological: A/Ox3, speech normal, no facial asymmetry Skin: Warm, dry, no rashes Psychiatric: Normal affect, normal mood Objective Data Vital Signs Vital Signs: Vital Signs - 24 hr 06/27/21 15:47 06/27/21 22:00 06/28/21 04:38 Temperature 98.0 F 98.7 F Pulse Rate 75 67 Respiratory Rate 20 18 Blood Pressure 130/50 L 122/75 Pulse Oximetry 98 96 96 06/28/21 05:50 Temperature 98.6 F Pulse Rate 67 Respiratory Rate 18 Blood Pressure 140/88 Pulse Oximetry 98 Intake/Output Intake/Output: Intake & Output 06/25/21 06/26/21 06/27/21 06/28/21 23:59 23:59 23:59 23:59 Intake Total 1000 1999 1000 Output Total 1100 Balance 1000 1999 - Meds/Results Medications: Active Medications Generic Name Dose Route Start Last Admin Trade Name Freq PRN Reason Stop Dose Admin Albuterol 2 puff 06/27/21 00:27 Albuterol Sulfate (*Sp) Aerosol 1 Puff INHALATION Q6HRT PRN Shortness Of Breath Dextrose 12.5 gm 06/27/21 00:24 Dextrose 50% 25 Gm/50 Ml Syringe IV PUSH PRN PRN Hypoglycemia Protocol Enoxaparin Sodium 40 mg 06/27/21 09:00 06/28/21 08:54 Enoxaparin 40 Mg/0.4 Ml Syringe SUB-Q 40 mg DAILY EFRAIN Administration Glucagon 1 mg 06/27/21 00:24 Glucagon For Inj 1 Mg Vial IM PRN PRN Hypoglycemia Protocol Glucose 15 gm 06/27/21 00:24 Glucose Oral Gel 15 Gm Of Glucse In 37.5 Gm Tube PO PRN PRN Hypoglycemia Protocol Sodium Chloride 1,000 mls @ 125 mls/hr 06/26/21 18:40 06/28/21 05:52 Normal Saline Iv IV CONT 125 mls/hr .Q8H EFRAIN Administration Dextrose 1,000 mls @ 100 mls/hr 06/27/21 00:24 Dextrose 5% 1,000 Ml IVPB PRN PRN Hypoglycemia Protocol Ibuprofen 800 mg in 200 mls @ 400 mls/hr 06/27/21 07:47 Caldolor 800 Mg/200 Ml IVPB Q6H PRN Pain Rated 1-3 Insulin Aspart 2 - 5 units 06/27/21 08:00 06/28/21 08:56 Insulin Aspart (*Bkc) 100 Units/Ml SUB-Q Not Given [facility] Protocol Morphine Sulfate 2 mg 06/27/21 07:47 06/28/21 06:05 Morphine Sulfate (*Crx) 2 Mg/Ml Inj IV PUSH 2 mg Q2H PRN Administration Pain Rated 4-6 Morphine Sulfate 4 mg 06/27/21 07:47 06/28/21 00:02 Morphine Sulfate (*Crx) 4 Mg/Ml Inj IV PUSH 4 mg Q2H PRN Administration Pain Rated 7-10 Ondansetron HCl 4 mg 06/26/21 18:40 06/27/21 21:43 Ondansetron Inj 4 Mg/2 Ml Vial IV PUSH 4 mg Q4H PRN Administration Nausea
[2021-06-28 11:28] LABS: Glucose Point of Care 166 mg/dl (65-105)
--- NOTE | 2021-06-28 11:36 | PM.PNGS ---
Progress Note: A&P Assessment and Plan (1) Partial obstruction of small intestine: Code(s): K56.600 - Partial intestinal obstruction, unspecified as to cause Status: Acute Assessment and Plan: Improving some, KUB today still suggests small bowel obstruction. Will continue NG tube decompression, NPO, and IV fluids. Repeat KUB tomorrow. Consider Gastrografin small-bowel follow-through tomorrow. (2) Hyperglycemia due to diabetes mellitus: Code(s): E11.65 - Type 2 diabetes mellitus with hyperglycemia Status: Acute Assessment and Plan: Poorly controlled, Hgb A1C >14 on admission. Glucose today in high 100's. On sliding scale insulin. Management per Hospitalist. Additional Plan I have discussed the plan of care with Dr. Alba. Subjective Subjective Date/Time Seen: 06/28/21 11:10 Patient reports: no new complaints, feels better, pain is less, no flatus and no bowel movement Interval history: Patient seen and examined. He reports feeling slightly better with some improvement in his generalized abdominal pain. NG tube with 300 cc output documented overnight. He denies flatus or BM. No other complaints at this time. Review of Systems Review of Systems: All systems reviewed & are unremarkable except as noted in HPI and below Exam Const: General: no acute distress and awake GI: Inspection: scar (Midline abdominal scar) and other (mildly distended) GI Palp: Yes Soft to palpation, Yes Tenderness to palpation present (GI) (diffusely tender), No Guarding due to palpation present (GI) and No Rebound tenderness present Auscultation: High-pitched bowel sounds present (fairly active BS) Neuro: General: moves all extremities and no focal motor deficits Extrem: General: normal to inspection Psych: Insight: Good insight present (Psych) Judgement: Good judgement present (Psych) Objective Data Vital Signs Vital Signs: Vital Signs - 24 hr 06/27/21 15:47 06/27/21 22:00 06/28/21 04:38 Temperature 98.0 F 98.7 F Pulse Rate 75 67 Respiratory Rate 20 18 Blood Pressure 130/50 L 122/75 Pulse Oximetry 98 96 96 06/28/21 05:50 Temperature 98.6 F Pulse Rate 67 Respiratory Rate 18 Blood Pressure 140/88 Pulse Oximetry 98 Intake/Output Intake/Output: Intake & Output 06/25/21 06/26/21 06/27/21/31/22 23:59 23:59 23:59 23:59 Intake Total 1000 1999 999 Output Total 1100 Balance 1000 1999 - Meds/Results Medications: Active Medications Generic Name Dose Route Start Last Admin Trade Name Freq PRN Reason Stop Dose Admin Albuterol 2 puff 06/27/21 00:27 Albuterol Sulfate (*Sp) Aerosol 1 Puff INHALATION Q6HRT PRN Shortness Of Breath Dextrose 12.5 gm 06/27/21 00:24 Dextrose 50% 25 Gm/50 Ml Syringe IV PUSH PRN PRN Hypoglycemia Protocol Enoxaparin Sodium 40 mg 06/27/21 09:00 06/28/21 08:54 Enoxaparin 40 Mg/0.4 Ml Syringe SUB-Q 40 mg DAILY EFRAIN Administration Glucagon 1 mg 06/27/21 00:24 Glucagon For Inj 1 Mg Vial IM PRN PRN Hypoglycemia Protocol Glucose 15 gm 06/27/21 00:24 Glucose Oral Gel 15 Gm Of Glucse In 37.5 Gm Tube PO PRN PRN Hypoglycemia Protocol Sodium Chloride 1,000 mls @ 125 mls/hr 06/26/21 18:40 06/28/21 05:52 Normal Saline Iv IV CONT 125 mls/hr .Q8H EFRAIN Administration Dextrose 1,000 mls @ 100 mls/hr 06/27/21 00:24 Dextrose 5% 1,000 Ml IVPB PRN PRN Hypoglycemia Protocol Ibuprofen 800 mg in 200 mls @ 400 mls/hr 06/27/21 07:47 Caldolor 800 Mg/200 Ml IVPB Q6H PRN Pain Rated 1-3 Insulin Aspart 2 - 5 units 06/27/21 08:00 06/28/21 08:56 Insulin Aspart (*Bkc) 100 Units/Ml SUB-Q Not Given TIDWM EFRAIN Protocol Morphine Sulfate 2 mg 06/27/21 07:47 06/28/21 06:05 Morphine Sulfate (*Crx) 2 Mg/Ml Inj IV PUSH 2 mg Q2H PRN Administration Pain Rated 4-6 Morphine Sulfate 4 mg 06/27/21 07:47 06/28/21 00:0
[2021-06-28 14:00] VITALS: BP 140/85; PULSE 74; RESP 16; TEMP 36.8; O2SAT 100
[2021-06-28 16:01] LABS: Glucose Point of Care 186 mg/dl (65-105)
[2021-06-28] MEDS: ONDANSETRON INJ 4 MG/2 ML VIAL IV PUSH (19:36)
[2021-06-28 20:50] LABS: Glucose Point of Care 193 mg/dl (65-105)
[2021-06-28 21:48] VITALS: BP 124/79; PULSE 87; RESP 17; TEMP 36.6; O2SAT 98
[2021-06-29] MEDS: MORPHINE SULFATE (*CRX) 4 MG/ML INJ IV PUSH ×8 (01:44→23:30)
[2021-06-29 05:34] VITALS: BP 133/79; PULSE 72; RESP 17; TEMP 36.4; O2SAT 99
[2021-06-29] MEDS: SODIUM CHLORIDE 0.9% IV 1,000 ML 125 ML IV CONT ×2 (06:12→17:44)
[2021-06-29 06:51] LABS: Hematocrit 44.7 % (42.0-52.0); Hemoglobin 14.2 g/dL (14.0-18.0); Mean Corpuscular HGB Conc 31.8 g/dl (32-36); Mean Corpuscular Hemoglobin 27.3 pg (26-34); Mean Corpuscular Volume 85.8 fl (80-100); Mean Platelet Volume 10.8 fl (7.4-10.4); Platelet Count Result 214 k/mm3 (150-375); Red Blood Count 5.21 M/mm3 (4.6-6.20); Red Cell Distribution Width 11.9 % (11.5-14.5); White Blood Count 6.4 K/mm3 (4.5-10.0)
--- NOTE | 2021-06-29 07:07 | PM.PNGS ---
Progress Note: A&P Assessment and Plan (1) Partial obstruction of small intestine: Code(s): K56.600 - Partial intestinal obstruction, unspecified as to cause Status: Acute Assessment and Plan: will proceed with water-soluble contrast upper GI small-bowel follow-through today. If passes through with relatively normal transit, will DC NG and feed. Otherwise, may need continued suction or possibly laparotomy. Subjective Subjective Date/Time Seen: 06/29/21 07:07 Patient reports: no new complaints, still having pain ( Pain is better but not gone. Did taken analgesics last night), no flatus, no bowel movement and afebrile Review of Systems Review of Systems: All systems reviewed & are unremarkable except as noted in HPI and below Constitutional: Constitutional: Denies chills, Denies fever(s) and Denies headache(s) Cardiovascular: Cardiovascular: Denies chest pain and Denies dyspnea Respiratory: Respiratory: Denies cough and Denies dyspnea Gastrointestinal: Gastrointestinal: Reports as per HPI, Reports abdominal pain, Denies heartburn and Denies nausea Exam Const: General: comfortable and no acute distress; No confusion Orientation/consciousness: patient oriented x3 and No confusion GI: Inspection: non-distended and scar GI Palp: Yes Soft to palpation, No Tenderness to palpation present (GI), No Guarding due to palpation present (GI), No Hepatomegaly present, No Splenomegaly present, No Hernia present, No Palpable mass present and No Rebound tenderness present Auscultation: Hypoactive bowel sounds present Neuro: General: patient oriented x3, no focal motor deficits and No confusion Extrem: General: no calf tenderness and no edema Psych: Affect: normal affect Insight: Good insight present (Psych) Judgement: Good judgement present (Psych) Objective Data Vital Signs Vital Signs: Vital Signs - 24 hr 06/28/21 08:00 06/28/21 14:00 06/28/21 21:48 Temperature 36.8 C 36.6 C Pulse Rate 74 74 87 Respiratory Rate 16 16 17 Blood Pressure 140/85 124/79 Pulse Oximetry 100 100 98 06/29/21 05:34 Temperature 36.4 C Pulse Rate 72 Respiratory Rate 17 Blood Pressure 133/79 Pulse Oximetry 99 Intake/Output Intake/Output: Intake & Output 06/26/21 06/27/21 06/28/21 06/29/21 23:59 23:59 23:59 23:59 Intake Total 1000 1999 3000 1000 Output Total 1900 1150 Balance 1000 1999 1100 -150 Meds/Results Medications: Active Medications Generic Name Dose Route Start Last Admin Trade Name Freq PRN Reason Stop Dose Admin Albuterol 2 puff 06/27/21 00:27 Albuterol Sulfate (*Sp) Aerosol 1 Puff INHALATION Q6HRT PRN Shortness Of Breath Dextrose 12.5 gm 06/27/21 00:24 Dextrose 50% 25 Gm/50 Ml Syringe IV PUSH PRN PRN Hypoglycemia Protocol Enoxaparin Sodium 40 mg 06/27/21 09:00 06/28/21 08:54 Enoxaparin 40 Mg/0.4 Ml Syringe SUB-Q 40 mg DAILY EFRAIN Administration Glucagon 1 mg 06/27/21 00:24 Glucagon For Inj 1 Mg Vial IM PRN PRN Hypoglycemia Protocol Glucose 15 gm 06/27/21 00:24 Glucose Oral Gel 15 Gm Of Glucse In 37.5 Gm Tube PO PRN PRN Hypoglycemia Protocol Sodium Chloride 1,000 mls @ 100 mls/hr 06/26/21 18:40 06/29/21 06:12 Normal Saline Iv IV CONT 125 mls/hr .Q10H EFRAIN Administration Dextrose 1,000 mls @ 100 mls/hr 06/27/21 00:24 Dextrose 5% 1,000 Ml IVPB PRN PRN Hypoglycemia Protocol Ibuprofen 800 mg in 200 mls @ 400 mls/hr 06/27/21 07:47 Caldolor 800 Mg/200 Ml IVPB Q6H PRN Pain Rated 1-3 Insulin Aspart 2 - 5 units 06/27/21 08:00 06/28/21 16:21 Insulin Aspart (*Bkc) 100 Units/Ml SUB-Q Not Given TIDWM EFRAIN Protocol Morphine Sulfate 2 mg 06/27/21 07:47 06/28/21 06:05 Morphine Sulfate (*Crx) 2 Mg/Ml Inj IV PUSH 2 mg Q2H PRN Administration Pain Rated 4-6 Morphine Sulfate 4 mg 06/27/21 07:47 06/29/21 01:44 Morphine Sulfate (*Cr
[2021-06-29 07:08] LABS: Anion Gap 8 mmol/L (8-16); Blood Urea Nitrogen 12 mg/dL (9-20); Calcium 8.8 mg/dL (8.4-10.2); Carbon Dioxide 24 mmol/L (22-30); Chloride 104 mmol/L (98-107); Estimated CRCL calculation 105 ml/min; Estimated Glomerular Filt Rate > 60; Glucose 186 mg/dL (65-110); Potassium 3.8 mmol/L (3.4-5.0); Sodium 136 mmol/L (137-145)
[2021-06-29 07:54] LABS: Glucose Point of Care 166 mg/dl (65-105)
[2021-06-29 08:00] VITALS: PULSE 72; RESP 17; O2SAT 99
[2021-06-29] MEDS: PANTOPRAZOLE SODIUM IV 40 MG VIAL IV PUSH (08:50)
[2021-06-29] MEDS: ENOXAPARIN 40 MG/0.4 ML SYRINGE SUB-Q (08:50)
--- NOTE | 2021-06-29 10:13 | PC.NURSE ---
Pt to radiology department for testing.
[2021-06-29] MEDS: ONDANSETRON INJ 4 MG/2 ML VIAL IV PUSH ×3 (11:55→20:23)
[2021-06-29 12:08] LABS: Glucose Point of Care 182 mg/dl (65-105)
--- NOTE | 2021-06-29 13:29 | PC.NURSE ---
Pt back form testing. NGT to low continuous suction. Pt resting with call light in reach.
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
[2021-06-29 13:53] VITALS: BP 145/88; PULSE 53; RESP 18; TEMP 35.7; O2SAT 100
--- NOTE | 2021-06-29 16:20 | PC.NURSE ---
Status report given to surgeon.
[2021-06-29 17:15] LABS: Glucose Point of Care 232 mg/dl (65-105)
[2021-06-29 20:35] VITALS: PULSE 81; RESP 16; O2SAT 98
[2021-06-29 21:18] VITALS: BP 150/90; PULSE 81; RESP 16; TEMP 36.6; O2SAT 98
[2021-06-30] MEDS: MORPHINE SULFATE (*CRX) 4 MG/ML INJ IV PUSH ×4 (01:11→13:55)
[2021-06-30 01:17] LABS: Glucose Point of Care 221 mg/dl (65-105)
[2021-06-30] MEDS: SODIUM CHLORIDE 0.9% IV 1,000 ML 125 ML IV CONT (05:07)
[2021-06-30 05:55] VITALS: BP 151/88; PULSE 67; RESP 16; TEMP 36.6; O2SAT 100
[2021-06-30 07:20] LABS: Anion Gap 11 mmol/L (8-16); Blood Urea Nitrogen 10 mg/dL (9-20); Calcium 9.5 mg/dL (8.4-10.2); Carbon Dioxide 19 mmol/L (22-30); Chloride 110 mmol/L (98-107); Estimated CRCL calculation 105 ml/min; Estimated Glomerular Filt Rate > 60; Glucose 214 mg/dL (65-110); Potassium 4.3 mmol/L (3.4-5.0); Sodium 140 mmol/L (137-145)
[2021-06-30 08:00] VITALS: O2SAT 99
[2021-06-30 08:08] LABS: Glucose Point of Care 230 mg/dl (65-105)
[2021-06-30] MEDS: INSULIN ASPART (*BKC) 100 UNITS/ML SUB-Q ×2 (08:56→13:55)
[2021-06-30] MEDS: PANTOPRAZOLE SODIUM IV 40 MG VIAL IV PUSH (08:58)
[2021-06-30] MEDS: ENOXAPARIN 40 MG/0.4 ML SYRINGE SUB-Q (08:58)
[2021-06-30 09:07] VITALS: BP 148/80; PULSE 72; RESP 18; TEMP 36.6; O2SAT 99
[2021-06-30] MEDS: BISACODYL 10 MG SUPPOSITORY RECTAL ×2 (09:57→20:12)
[2021-06-30] MEDS: MAGNESIUM HYDROXIDE SUSP 30 ML UDC FEED TUBE ×2 (09:57→18:56)
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
[2021-06-30 11:29] LABS: Glucose Point of Care 226 mg/dl (65-105)
[2021-06-30] MEDS: ONDANSETRON INJ 4 MG/2 ML VIAL IV PUSH (14:05)
[2021-06-30 14:56] VITALS: BP 139/87; PULSE 74; RESP 18; TEMP 36.5; O2SAT 98
[2021-06-30 16:41] LABS: Glucose Point of Care 199 mg/dl (65-105)
--- NOTE | 2021-06-30 17:53 | PM.PNGS ---
Progress Note: A&P Assessment and Plan (1) Partial obstruction of small intestine: Code(s): K56.600 - Partial intestinal obstruction, unspecified as to cause Status: Acute Assessment and Plan: The water-soluble contrast upper GI small-bowel follow-through on 06/29 got throuhg in 3 hr, but there were still dilated loops of SB. Will check Abd. x-ray in AM put Second dose of MOM down NG tonight to be sure this is not just significant colonic constipation. His pain is significantly less tonight compared to last night. Will try clamping the NG again later as he tolerated it most of the day/had a BM/passed flatus and X-ray was showing significant stool in the colon still Subjective Subjective Date/Time Seen: 06/30/21 17:33 Pt. lying in bed when I entered the room. Denied walking in the [place] yet today. He states he did have a bowel movement today after a suppository. He also passed a good amount of gas while that happened. No subsequent bowel movement in the interim. About an hour ago he asked the nurse to hook his NG back up to suction and he has about 400 cc of clear fluid in the suction canister. Review of Systems Review of Systems: All systems reviewed & are unremarkable except as noted in HPI and below Constitutional: Constitutional: Denies chills, Denies fever(s) and Denies headache(s) ENT: Denies headache(s) Cardiovascular: Cardiovascular: Denies chest pain, Denies diaphoresis, Denies dyspnea and Denies paroxysmal nocturnal dyspnea Respiratory: Respiratory: Denies chest congestion, Denies cough and Denies dyspnea Gastrointestinal: Gastrointestinal: Reports as per HPI, Reports abdominal pain, Reports bloating, Denies heartburn, Denies nausea and Denies vomiting Integumentary/Breasts: Skin/Breast: Denies lesions and Denies rash Neurologic: Denies confusion, Denies headache(s) and Denies Sensory deficit (Neuro) Psychiatric: Psychiatric: Denies confusion Exam Const: General: comfortable, no acute distress, alert and awake; No confusion Orientation/consciousness: patient oriented x3 and No confusion HENMT: Head: normocephalic and atraumatic Ears: hearing grossly normal bilaterally and external ears normal General nose exam: Normal external nose present, no nasal discharge noted and no epistaxis Face and sinus: normal facial exam, face symmetric, no tenderness and dry mucous membranes Mouth: Yes Normal oral and palatal mucosa present and No tongue abnormal Eyes: Conjunctivae: conjunctivae normal Sclera: sclerae normal Pupils: Equal, round and reactive pupils present EOM: EOMs intact bilaterally Neck: Neck: nontender Chest: Chest palpation & inspection: mass and no tenderness Resp: Effort & Inspection: normal respiratory effort, no audible wheezes, no cough and no pursed lip breathing Auscultation: clear to auscultation bilaterally Cardio: Rate: regular rate Rhythm: regular rhythm Heart sounds: no gallops, no murmurs and no rubs GI: Inspection: non-distended, scar ( Well-healed midline scar without obvious hernia) and other ( mildly tender in the epigastrium) Auscultation: Hypoactive bowel sounds present : General: Yes no CVA tenderness Back/Spine/Pelvis: Back: no CVA tenderness, No mass, No ecchymosis and No back tenderness Skin: General skin exam: no induration and other (no palpable nodules) Lesions: no lesions Rashes: no rashes Nails: no clubbing and no pitting Neuro: General: patient oriented x3, moves all extremities, no focal motor deficits and No confusion Cranial nerves: Yes Equal, round and reactive pupils present, Yes facial symmetry and Yes Midline tongue present Motor exam (neuro): No tremor noted, Normal motor muscle tone present throughout and Other motor observations present (Upper and lower motor strength strong and symmetric) Sensory Exam: No Sensory deficit (Neuro) Extrem: General: normal to inspection, capillary refill normal, no calf tenderness, no clubbing, no cyanos
[2021-06-30 20:15] VITALS: O2SAT 96
[2021-06-30 22:00] VITALS: BP 141/95; PULSE 89; RESP 17; TEMP 36.6; O2SAT 100
[2021-07-01 05:40] VITALS: BP 148/87; PULSE 85; RESP 15; TEMP 36.6; O2SAT 100
[2021-07-01 07:11] LABS: Basophils Percent Auto 0.6 % (0.2-1.2); Eosinophils Percent Auto 0.5 % (0-4.4); Hematocrit 48.5 % (42.0-52.0); Hemoglobin 15.7 g/dL (14.0-18.0); Immature Granulocyte Absolute 0.01 K/mm3 (0.00-0.031); Immature Granulocyte Percent A 0.2 % (0-0.5); Lymphocytes Absolute Auto 1.39 K/mm3 (0.9-3.2); Lymphocytes Percent Auto 22.1 % (18.3-44.2); Mean Corpuscular HGB Conc 32.4 g/dl (32-36); Mean Corpuscular Hemoglobin 27.4 pg (26-34); Mean Corpuscular Volume 84.8 fl (80-100); Mean Platelet Volume 11.2 fl (7.4-10.4); Monocytes Absolute Auto 0.6 K/mm3 (0.1-0.6); Monocytes Percent Auto 9.2 % (2.6-8.5); Neutrophils Absolute Auto 4.2 K/mm3 (1.3-6.7); Neutrophils Percent Auto 67.4 % (45.5-73.1); Platelet Count Result 238 k/mm3 (150-375); Red Blood Count 5.72 M/mm3 (4.6-6.20); White Blood Count 6.3 K/mm3 (4.5-10.0)
[2021-07-01 07:25] LABS: Anion Gap 10 mmol/L (8-16); Blood Urea Nitrogen 14 mg/dL (9-20); Calcium 9.2 mg/dL (8.4-10.2); Carbon Dioxide 22 mmol/L (22-30); Chloride 106 mmol/L (98-107); Estimated CRCL calculation 105 ml/min; Estimated Glomerular Filt Rate > 60; Glucose 205 mg/dL (65-110); Potassium 3.9 mmol/L (3.4-5.0); Sodium 138 mmol/L (137-145)
[2021-07-01] MEDS: PANTOPRAZOLE SODIUM IV 40 MG VIAL IV PUSH (09:44)
[2021-07-01] MEDS: ENOXAPARIN 40 MG/0.4 ML SYRINGE SUB-Q (09:44)
[2021-07-01] MEDS: SODIUM CHLORIDE 0.9% IV 1,000 ML 70 ML IV CONT (09:44)
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
--- NOTE | 2021-07-01 11:47 | PM.PNGS ---
Progress Note: A&P Assessment and Plan (1) Partial obstruction of small intestine: Code(s): K56.600 - Partial intestinal obstruction, unspecified as to cause Status: Acute Assessment and Plan: The water-soluble contrast upper GI small-bowel follow-through on 06/29 got throuhg in 3 hr, but there were still dilated loops of SB. Abd. x-ray Today still shows some mildly dilated loops of small bowel. Most of the dye is through the colon but not much in the rectum. After thorough discussion with the patient will put put third dose of MOM down NG today (now) to be sure this is not just significant colonic constipation. His pain is significantly less last night and today compared to . night. After reviewing all his radiology studies with our radiologist here I had a thorough discussion with the patient. I offered him 3 options: 1. Leave the NG tube in but clamped and start clear liquids and advance diet as tolerated if he is doing well, but slowly. Will check him in the morning and nurse can pull the NG tube if he tolerates 2 meals of clear liquids tonight around 7 PM. 2. Pull the NG tube now and do the same as above then put the NG back in if he fails. 3. Proceed today to laparoscopy with careful operative laparoscopy for lysis of adhesions and possible open laparotomy if necessary to release the partial small bowel obstruction. After thorough discussion the patient opts for #1. Above. Therefore, will leave the NG tube in but clamped. He knows that he can at any time call the nurse and ask her to unclamp the NG if his pain comes back severely or he feels reallynauseated. If he is doing well after to meals ( lunch and supper) around 8:00 p.m. tonight the nurse will possibly remove the NG tube. Will not order x-rays for the morning but will see him early decide further on his care. Subjective Subjective Date/Time Seen: 07/01/21 11:47 Patient reports: no new complaints, feels better and flatus Interval history: Patient lying in bed on his right side when I came in the room. He denies much abdominal pain today. He had another bowel movement after a suppository last evening. He did not get up and walk in the hallway as instructed to yet. He did take a shower last night and states that helped him feel better. However, he felt slightly woozy in the shower therefore was afraid to walk. I let him know that 1 of the aides would walk with him but he really needs to walk in the hallway. He states he is passing some flatus today but no spontaneous bowel movement yet. Review of Systems Review of Systems: All systems reviewed & are unremarkable except as noted in HPI and below Constitutional: Constitutional: Denies chills, Denies fever(s) and Denies headache(s) ENT: Denies headache(s) Cardiovascular: Cardiovascular: Denies chest pain, Denies diaphoresis, Denies dyspnea and Denies paroxysmal nocturnal dyspnea Respiratory: Respiratory: Denies chest congestion, Denies cough and Denies dyspnea Gastrointestinal: Gastrointestinal: Reports as per HPI, Denies heartburn, Denies nausea and Denies vomiting Integumentary/Breasts: Skin/Breast: Denies lesions and Denies rash Neurologic: Denies confusion, Denies headache(s) and Denies Sensory deficit (Neuro) Psychiatric: Psychiatric: Denies confusion Exam Const: General: comfortable, no acute distress, alert and awake; No confusion Orientation/consciousness: patient oriented x3 and No confusion HENMT: Head: normocephalic and atraumatic Ears: hearing grossly normal bilaterally and external ears normal General nose exam: Normal external nose present, no nasal discharge noted and no epistaxis Face and sinus: normal facial exam, face symmetric, no tenderness and dry mucous membranes Mouth: Yes Normal oral and palatal mucosa present and No tongue abnormal Eyes: Conjunctivae: conjunctivae normal Sclera: sclerae normal Pupils: Equal, round and reactive pupils present EOM: EOMs
[2021-07-01 12:46] LABS: Glucose Point of Care 183 mg/dl (65-105)
[2021-07-01 14:55] VITALS: BP 130/85; PULSE 71; RESP 18; TEMP 36.4; O2SAT 98
--- NOTE | 2021-07-01 15:15 | PCCCNOTE ---
On 07/01/21, the student, [Pratima Ortega], provided care and completed [facility] documentation on this patient. I have reviewed the student's documentation and agree with the findings.
[2021-07-01] MEDS: MORPHINE SULFATE (*CRX) 4 MG/ML INJ IV PUSH ×3 (16:28→23:05)
[2021-07-01 16:54] LABS: Glucose Point of Care 215 mg/dl (65-105)
[2021-07-01] MEDS: ONDANSETRON INJ 4 MG/2 ML VIAL IV PUSH ×2 (18:43→23:10)
[2021-07-01 21:42] VITALS: BP 141/83; PULSE 70; RESP 16; TEMP 37; O2SAT 97
[2021-07-01] MEDS: LIDOCAINE HCL 2% GEL UROJET 10 ML PKG MUCOUS MEM (22:50)
[2021-07-02] VITALS (7 sets, daily range): BP systolic 125–144; BP diastolic 80–91; PULSE 72–88; RESP 15–18; TEMP 36.7–37.3; O2SAT 97–100
[2021-07-02] MEDS: SODIUM CHLORIDE 0.9% IV 1,000 ML 70 ML IV CONT ×2 (00:05→19:11)
[2021-07-02 00:12] LABS: Glucose Point of Care 206 mg/dl (65-105)
[2021-07-02] MEDS: INSULIN ASPART (*BKC) 100 UNITS/ML SUB-Q (06:27)
[2021-07-02 06:41] LABS: Glucose Point of Care 219 mg/dl (65-105)
[2021-07-02 07:26] LABS: Hematocrit 46.6 % (42.0-52.0); Hemoglobin 15.2 g/dL (14.0-18.0); Mean Corpuscular HGB Conc 32.6 g/dl (32-36); Mean Corpuscular Hemoglobin 27.3 pg (26-34); Mean Corpuscular Volume 83.8 fl (80-100); Mean Platelet Volume 11.3 fl (7.4-10.4); Platelet Count Result 244 k/mm3 (150-375); Red Blood Count 5.56 M/mm3 (4.6-6.20); Red Cell Distribution Width 12.1 % (11.5-14.5); White Blood Count 10.9 K/mm3 (4.5-10.0)
[2021-07-02 07:39] LABS: Anion Gap 12 mmol/L (8-16); Blood Urea Nitrogen 14 mg/dL (9-20); Carbon Dioxide 19 mmol/L (22-30); Chloride 107 mmol/L (98-107); Estimated CRCL calculation 105 ml/min; Estimated Glomerular Filt Rate > 60; Glucose 212 mg/dL (65-110); Potassium 3.8 mmol/L (3.4-5.0); Sodium 138 mmol/L (137-145)
[2021-07-02] MEDS: ENOXAPARIN 40 MG/0.4 ML SYRINGE SUB-Q (09:10)
[2021-07-02] MEDS: PANTOPRAZOLE SODIUM IV 40 MG VIAL IV PUSH (09:10)
--- NOTE | 2021-07-02 09:17 | PM.PNGS ---
Progress Note: A&P Assessment and Plan (1) Partial obstruction of small intestine: Code(s): K56.600 - Partial intestinal obstruction, unspecified as to cause Status: Acute Assessment and Plan: Patient failed trial of clear liquids with NG clamped and then out for 2 hours. Thorough discussion undertaken again today regarding plans for possible laparoscopy, operative laparoscopy with lysis of adhesions if for successful releasing small-bowel obstruction. If not proceed to laparotomy and possible lysis of adhesions versus small-bowel resection. He understands that he is not progressing therefore we need to move on to surgical intervention. Risks including that of bleeding, infection, possible injury to surrounding organs. Have been discussed he seems understand wished to proceed. Postop recovery has been discussed. Fairly quick recovery of for able do a laparoscopic laparoscopically but may have 3-5 days of ileus if we have to do an open laparotomy. (2) Hyperglycemia due to diabetes mellitus: Code(s): E11.65 - Type 2 diabetes mellitus with hyperglycemia Status: Acute Assessment and Plan: I have contacted the hospitalist to ask them to follow closely while he is NPO and through the time of surgery. Blood sugar this morning was 212. Additional Plan I have discussed the plan of care with Malina Saldaña under hospitalist. Subjective Subjective Date/Time Seen: 07/02/21 09:17 Patient lying in the bed fairly comfortable when I came in. Approximately 2 hours after the NG was removed last night he began having bloating and nausea. Therefore asked the NG be placed again and it was replaced at about 10 30. Approximately 600 cc out since then. He feels slightly better but has not passed gas and had only very small bowel movement spontaneously through the day yesterday. He states he is willing to proceed to surgery to try to resolve this problem. Review of Systems Review of Systems: All systems reviewed & are unremarkable except as noted in HPI and below Constitutional: Constitutional: Denies chills, Denies fever(s) and Denies headache(s) ENT: Denies headache(s) Cardiovascular: Cardiovascular: Denies chest pain, Denies diaphoresis, Denies dyspnea and Denies paroxysmal nocturnal dyspnea Respiratory: Respiratory: Denies chest congestion, Denies cough and Denies dyspnea Gastrointestinal: Gastrointestinal: Reports as per HPI, Denies heartburn, Denies nausea and Denies vomiting Integumentary/Breasts: Skin/Breast: Denies lesions and Denies rash Neurologic: Denies confusion, Denies headache(s) and Denies Sensory deficit (Neuro) Psychiatric: Psychiatric: Denies confusion Exam Const: General: comfortable, no acute distress, alert and awake; No confusion Orientation/consciousness: patient oriented x3 and No confusion HENMT: Head: normocephalic and atraumatic Ears: hearing grossly normal bilaterally and external ears normal General nose exam: Normal external nose present, no nasal discharge noted and no epistaxis Face and sinus: normal facial exam, face symmetric, no tenderness and dry mucous membranes Mouth: Yes Normal oral and palatal mucosa present and No tongue abnormal Eyes: Conjunctivae: conjunctivae normal Sclera: sclerae normal Pupils: Equal, round and reactive pupils present EOM: EOMs intact bilaterally Neck: Neck: nontender Thyroid: thyroid normal and nontender Lymphatic: lymphadenopathy not noted Chest: Chest palpation & inspection: mass and no tenderness Resp: Effort & Inspection: normal respiratory effort, no audible wheezes, no cough and no pursed lip breathing Auscultation: clear to auscultation bilaterally Cardio: Rate: regular rate Rhythm: regular rhythm Heart sounds: no gallops, no murmurs and no rubs GI: Inspection: non-distended, scar ( Well-healed midline scar without obvious hernia) and other ( mildly tender in the epigastrium) Auscultation: Hypoactive bowel sounds present
--- NOTE | 2021-07-02 09:23 | WPDHPUPDATE1 ---
History and Physical Update Update Date/Time: 07/02/21 09:23 History and Physical has been reviewed, including an updated exam of the patient. There are changes in the patient's condition. See continuing hospital progress notes. Small-bowel follow-through showed dye getting through any obstruction to the colon in 3 hours however there were still several loops of dilated small bowel behind an area of partial obstruction. Patient has not progressed adequately and had recurrence of nausea and vomiting last evening. Therefore, after thorough discussion we plan to proceed with laparoscopy, possible laparotomy. Risks, benefits, and alternatives have been discussed and questions answered. Patient agrees to proceed with procedure.
[2021-07-02 11:50] LABS: Glucose Point of Care 205 mg/dl (65-105)
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
[2021-07-02] MEDS: LACTATED RINGERS 1,000 ML 30 ML IV CONT ×2 (14:30→17:05)
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
--- NOTE | 2021-07-02 15:03 | WPDANESEFPP ---
Anes - Eval Final PreProcedure Day of Procedure 07/02/21 15:03 Heart: regular rate and rhythm Lungs: clear to auscultation Airway: Mallampati scale class II Neurological: alert and oriented Last oral intake: >/= 8 hours ASA classification: III Emergent: no Anesthetic plan: proceed Anesthesia type and monitoring: general ETT and standard monitoring Results Review: All pre-operative results and documents have been reviewed as part of the pre-operative evaluation. Informed Consent: The patient's anesthetic plan and its attendant risks and benefits were discussed with the patient/family/POA. Questions were solicited and answers provided to the satisfaction of the patient/family/POA.
[2021-07-02] MEDS: cefoTEtan DISODIUM INJ 2 GM in DEXTROSE 5% IN WATER 50 ML IVPB (15:30)
[2021-07-02] MEDS: KETOROLAC 30 MG/ML VIAL (*BKC) 15 MG IV PUSH (15:57)
[2021-07-02] MEDS: BUPIVACAINE/EPINEPHRINE 0.5% 10 ML VIAL 11 ML INFILTRATE (16:52)
--- NOTE | 2021-07-02 17:07 | W.PM.PROC2 ---
Procedure Note - Detailed Date of Procedure 07/02/21 Pre-op Diagnosis partial small bowel obstruction Post-op Diagnosis other (Partial small-bowel obstructions secondary to adhesions) Procedure Performed Diagnostic laparoscopy with laparoscopic lysis of adhesions and release of small-bowel obstruction Surgeon Corwin Ravi MD Clerk Travel Reservations [facility] [place], [place] 1st assist Anesthesia general Indications Patient has been hospitalized for several days. He had a small-bowel follow-through that showed the dye went through to the colon but there were still some dilated loops of bowel proximal to an area that decompressed quickly. Therefore it was suspicious for partial small bowel obstruction and he has had previous surgery and therefore could have adhesive bands. He was given a trial of clear liquids and he failed. Therefore, I discussed with him the risks benefits possible complications of proceeding with laparoscopy to try to determine the area of obstruction and release it. Findings Two dense fibrous brand bands were found 1 directly underneath the umbilicus between a loop of bowel and the underlying mesentery. A 2nd about twice a 10 cm back from the ileocecal valve which was another dense band between that loop of bowel and some mesentery. In both areas a loop of bowel had slid under the bands. Portion of each band was excised for pathology. Description of Procedure Patient was brought into the operating room and moved to the operating table. After induction of adequate general endotracheal anesthesia Shaw catheter was placed and the patient was placed supine. Entire abdomen was prepped and draped in usual sterile fashion and the NG tube was left in place and connected to low intermittent suction. Following this the patient was placed slightly head up position and rotated slightly away from ca as I was standing on his left side. Following this time-out was performed with the surgery team confirming that the site of surgery was the abdomen for bowel obstruction. Following this local anesthetic was infiltrated into an area in the subcostal space on the left well off the midline. A 5 mm incision was made and 2 towel clips were applied to allow upward tension and then the Veress needle was used to enter the abdomen and a water drop test done to confirm that we were in a free space. CO2 gas was then insufflated until were at 15 mmHg of mercury pressure. Following this the 0? 5 mm laparoscope was placed through a 5 mm trocar and this was carefully twisted into the abdomen and we entered the free space created by the CO2 gas. The trocar was removed and cannula left in place. We placed the 5 mm scope back in and we were able to confirm that we were within the space of the peritoneum without signs of surrounding tissue damage. CO2 was reconnected to the laparoscopic port and left at 14 mm of mercury pressure. We then explored the inside of the abdomen & there were dense adhesions of the omentum to the anterior abdominal wall underneath his midline incision. There were several fairly dilated loops of small bowel in the upper abdomen. We placed him in Trendelenburg position and rotated him away from me or toward the right and placed 2 more 5 mm ports in the mid and lower left abdomen. These were placed under direct vision. Following this with these working ports we were able to gradually begin exploring the small bowel and following the dilated bowel distally. As we were doing this we rotated the patient back toward the left and pulled this dilated bowel back toward his head and to the left. I did take down some adhesions from the underside of his scar all the way up to the level of the umbilicus so that we would have room to work and be able to see the right side of the abdomen. This was done with a combination of Bovie cautery scissors and graspers. Following this we carefully found the loops of decompressed small bowel far over on the right side and began
[2021-07-03] VITALS (8 sets, daily range): BP systolic 128–137; BP diastolic 78–90; PULSE 70–85; RESP 16; TEMP 36.4–37; O2SAT 94–100
[2021-07-03 00:42] LABS: Glucose Point of Care 234 mg/dl (65-105)
[2021-07-03 06:25] LABS: Glucose Point of Care 210 mg/dl (65-105)
[2021-07-03 06:26] LABS: Hematocrit 43.4 % (42.0-52.0); Hemoglobin 14.3 g/dL (14.0-18.0); Mean Corpuscular HGB Conc 32.9 g/dl (32-36); Mean Corpuscular Hemoglobin 27.9 pg (26-34); Mean Corpuscular Volume 84.8 fl (80-100); Mean Platelet Volume 11.1 fl (7.4-10.4); Platelet Count Result 218 k/mm3 (150-375); Red Blood Count 5.12 M/mm3 (4.6-6.20); Red Cell Distribution Width 12.1 % (11.5-14.5); White Blood Count 8.1 K/mm3 (4.5-10.0)
--- NOTE | 2021-07-03 07:21 | WPDANESPN ---
Anes - Prog Note Post-Op Date/Time: 07/03/21 07:21 Cardiovascular status: normal Respiratory status: normal Airway patency: baseline Mental status: baseline Post-Op hydration status: normal Vital Signs: Last Vital Signs Temp 98 F 07/03/21 04:00 Pulse 85 07/03/21 04:00 Resp 16 07/03/21 04:00 BP 134/81 07/03/21 04:00 Pulse Ox 97 07/03/21 04:00 Pain Score (VAS): 07/08 I/O: Intake & Output 07/02/21 07/02/21 07/03/21 15:59 23:59 07:59 Intake Total 1000 450 Output Total 400 1100 Balance 1000 50 -1100 Laboratory Tests 07/03/21 06:01 07/02/21 07/02/21 07/02/21 06:39 06:39 11:37 WBC 10.9 H RBC 5.56 Hgb 15.2 Hct 46.6 MCV 83.8 MCH 27.3 MCHC 32.6 RDW 12.1 Plt Count 244 MPV 11.3 H Sodium 138 Potassium 3.8 Chloride 107 Carbon Dioxide 19 L Anion Gap 12 BUN 14 Creatinine 0.70 Estim Creat Clear Calc 105 Estimated GFR > 60 Glucose 212 H POC Capillary Glucose 205 H Calcium 9.0 Magnesium Total Bilirubin AST ALT Alkaline Phosphatase Total Protein Albumin 07/02/21 07/03/21 07/03/21 23:59 06:01 06:01 WBC 8.1 RBC 5.12 Hgb 14.3 Hct 43.4 MCV 84.8 MCH 27.9 MCHC 32.9 RDW 12.1 Plt Count 218 MPV 11.1 H Sodium Pending Potassium Pending Chloride Pending Carbon Dioxide Pending Anion Gap Pending BUN Pending Creatinine Pending Estim Creat Clear Calc Pending Estimated GFR Pending Glucose Pending POC Capillary Glucose 234 H Calcium Pending Magnesium Pending Total Bilirubin Pending AST Pending ALT Pending Alkaline Phosphatase Pending Total Protein Pending Albumin Pending 07/03/21 06:20 WBC RBC Hgb Hct MCV MCH MCHC RDW Plt Count MPV Sodium Potassium Chloride Carbon Dioxide Anion Gap BUN Creatinine Estim Creat Clear Calc Estimated GFR Glucose POC Capillary Glucose 210 H Calcium Magnesium Total Bilirubin AST ALT Alkaline Phosphatase Total Protein Albumin Post-procedural complaints: none Patient Feedback: Patient satisfied with anesthetic care.
[2021-07-03 07:49] LABS: Alanine Aminotransferase 13 U/L (4-50); Albumin Level 3.4 g/dL (3.5-5.1); Alkaline Phosphatase 90 U/L (38-126); Anion Gap 10 mmol/L (8-16); Aspartate Amino Transferase 16 U/L (17-59); Bilirubin,Total 0.7 mg/dL (0.2-1.3); Blood Urea Nitrogen 14 mg/dL (9-20); Calcium 8.8 mg/dL (8.4-10.2); Carbon Dioxide 22 mmol/L (22-30); Chloride 108 mmol/L (98-107); Estimated CRCL calculation 92 ml/min; Estimated Glomerular Filt Rate > 60; Glucose 208 mg/dL (65-110); Magnesium 2.1 mg/dL (1.6-2.3); Potassium 3.8 mmol/L (3.4-5.0); Sodium 140 mmol/L (137-145)
[2021-07-03 08:17] LABS: Glucose Point of Care 214 mg/dl (65-105)
[2021-07-03] MEDS: PANTOPRAZOLE SODIUM IV 40 MG VIAL IV PUSH (08:53)
[2021-07-03] MEDS: ENOXAPARIN 40 MG/0.4 ML SYRINGE SUB-Q (08:53)
[2021-07-03] MEDS: SODIUM CHLORIDE 0.9% IV 1,000 ML 70 ML IV CONT (08:54)
--- NOTE | 2021-07-03 09:06 | PC.NURSE ---
NGT clamped as MD ordered. To remain clamped x 3 hours. Clear liquids given. Will monitor.
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
--- NOTE | 2021-07-03 11:09 | PM.PNGS ---
Progress Note: A&P Assessment and Plan (1) Partial obstruction of small intestine: Onset Date: ~06/2021 Code(s): K56.600 - Partial intestinal obstruction, unspecified as to cause Status: Acute Assessment and Plan: now postop day 1 status post laparoscopic exploration with lysis of adhesions and release of small-bowel obstruction. Patient seems to be progressing normally. Less out the NG overnight. Will begin clamping routine on the NG and see if we can get it out later today. He will be allowed clear liquids around the NG for 2 hours. Then ice chips, then to suction for 1 hour. His several times of this rotation reveal minimal out the NG will probably remove tonight. Otherwise will continue this but place him on low intermittent suction between 11:00 p.m. and 7:00 a.m.. Hopefully some partial small-bowel obstruction will now resolved completely. He knows that if he is passing gas and having bowel movements he can gradually increase how much liquids he takes during the time that the NG is clamped. (2) Diabetes mellitus: Onset Date: Unknown Qualifiers: Diabetes mellitus complication status: with hyperglycemia Diabetes mellitus equipment operator intermodal yard insulin use: without equipment operator intermodal yard use Diabetes mellitus type: type 2 Qualified Code(s): E11.65 - Type 2 diabetes mellitus with hyperglycemia Code(s): E11.9 - Type 2 diabetes mellitus without complications Status: Acute Assessment and Plan: Discussed with Beth his hospitalist. She will continue working on further education for him and make him understand that it is important to control this as he had uncontrolled diabetes when he came in with a very high hemoglobin A1c.. Additional Plan Await return of full bowel activity Subjective Subjective Date/Time Seen: 07/03/21 11:09 Post Op day: 1 ( Status post laparoscopic lysis of adhesions with release of small-bowel obstruction) Patient reports: no new complaints, feels better, no flatus and no bowel movement Review of Systems Review of Systems: All systems reviewed & are unremarkable except as noted in HPI and below Exam Const: General: cooperative, comfortable, alert and awake Orientation/consciousness: patient oriented x3 HENMT: Head: normal to inspection Mouth: Yes moist mucous membranes Eyes: Sclera: sclerae normal Pupils: Equal, round and reactive pupils present Neck: Neck: normal visual inspection and no JVD Chest: Chest palpation & inspection: normal inspection of the chest Resp: Effort & Inspection: normal respiratory effort Auscultation: clear to auscultation bilaterally Cardio: Jugular venous distension: no JVD Rate: regular rate GI: Inspection: no abdominal wall ecchymosis and incision ( clean and dry with no surrounding erythema) GI Palp: Yes Other GI palpation findings present ( mildly distended today) Auscultation: Hypoactive bowel sounds present Rectal Exam: deferred Neuro: General: patient oriented x3 Cranial nerves: Yes Equal, round and reactive pupils present Objective Data Vital Signs Vital Signs: Vital Signs - 24 hr 07/02/21 14:30 07/02/21 17:05 07/02/21 17:20 Temperature 37.2 C 36.8 C Pulse Rate 81 72 75 Respiratory Rate 18 15 16 Blood Pressure 139/91 H 132/89 130/87 Pulse Oximetry 100 100 100 07/02/21 17:35 07/02/21 17:44 07/02/21 19:33 Temperature 36.7 C Pulse Rate 79 80 81 Respiratory Rate 16 16 16 Blood Pressure 136/88 135/91 H 144/80 H Pulse Oximetry 97 97 97 07/03/21 00:00 07/03/21 04:00 07/03/21 07:33 Temperature 36.4 C 36.6 C 37.0 C Pulse Rate 84 85 79 Respiratory Rate 16 16 16 Blood Pressure 130/90 134/81 128/82 Pulse Oximetry 98 97 98 Intake/Output Intake/Output: Intake & Output 06/30/21 07/01/21 07/02/21 07/03/21 23:59 23:59 23:59 23:59 Intake Total 1999 1240 3200 1000 Output Total 2600 1200 1850 1100 Balance -477 63 0602 -100 Meds/Results Medications: Active Medications Generic Name D
[2021-07-03 11:45] LABS: Glucose Point of Care 202 mg/dl (65-105)
--- NOTE | 2021-07-03 12:08 | PC.NURSE ---
NGT to LIS as ordered. Minimal return. Pt offers no complaints at present.
[2021-07-03 16:49] LABS: Glucose Point of Care 210 mg/dl (65-105)
--- NOTE | 2021-07-03 17:07 | PC.NURSE ---
NGT to LIS x1 hour. Pt denies pain or nausea. Will monitor.
--- NOTE | 2021-07-03 18:09 | PC.NURSE ---
Less then 100 mls out NGT since connected ot suction at 5PM. NGT DC'D per MD order. Pt tolerated well. Continues to deny nausea or abd pain. Tolerating clear liquid diet without difficulty. Will monitor.
[2021-07-03] MEDS: SENNA/DOCUSATE SODIUM TABLET 2 TAB PO (20:31)
[2021-07-04 06:00] VITALS: BP 133/87; PULSE 72; RESP 16; TEMP 36.6; O2SAT 98
[2021-07-04 06:34] LABS: Anion Gap 5 mmol/L (8-16); Blood Urea Nitrogen 10 mg/dL (9-20); Calcium 8.8 mg/dL (8.4-10.2); Carbon Dioxide 30 mmol/L (22-30); Chloride 103 mmol/L (98-107); Estimated CRCL calculation 105 ml/min; Estimated Glomerular Filt Rate > 60; Glucose 219 mg/dL (65-110); Potassium 3.5 mmol/L (3.4-5.0); Sodium 138 mmol/L (137-145)
[2021-07-04] MEDS: POTASSIUM CHLORIDE INJ 40 MEQ in SODIUM CHLORIDE 0.9% IV 500 ML 130 MEQ IVPB (08:32)
[2021-07-04] MEDS: PANTOPRAZOLE SODIUM IV 40 MG VIAL IV PUSH (08:32)
[2021-07-04] MEDS: ENOXAPARIN 40 MG/0.4 ML SYRINGE SUB-Q (08:32)
[2021-07-04 08:38] LABS: Glucose Point of Care 229 mg/dl (65-105)
[2021-07-04] MEDS: SODIUM CHLORIDE 0.9% IV 1,000 ML 70 ML IV CONT (11:29)
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
[2021-07-04 12:02] LABS: Glucose Point of Care 208 mg/dl (65-105)
[2021-07-04] MEDS: INSULIN ASPART (*BKC) 100 UNITS/ML SUB-Q ×2 (12:15→17:01)
[2021-07-04 14:00] VITALS: BP 136/89; PULSE 75; RESP 16; TEMP 36.7; O2SAT 97
[2021-07-04 16:19] LABS: Glucose Point of Care 256 mg/dl (65-105)
[2021-07-04 19:35] VITALS: BP 144/92; PULSE 71; RESP 17; TEMP 36.6; O2SAT 100
[2021-07-04 22:16] VITALS: PULSE 64; O2SAT 99
[2021-07-04 22:17] LABS: Glucose Point of Care 204 mg/dl (65-105)
--- NOTE | 2021-07-04 23:54 | PM.PNGS ---
Progress Note: A&P Assessment and Plan (1) Partial obstruction of small intestine: Onset Date: ~06/2021 Code(s): K56.600 - Partial intestinal obstruction, unspecified as to cause Status: Acute Assessment and Plan: now postop day 2 status post laparoscopic exploration with lysis of adhesions and release of small-bowel obstruction. Patient seems to be progressing normally. Less out the NG overnight. NG now out. Hopefully the partial small-bowel obstruction will now resolve completely. He knows that if he is passing gas and having bowel movements he can gradually increase how much liquids he takes. (2) Diabetes mellitus: Onset Date: Unknown Qualifiers: Diabetes mellitus complication status: with hyperglycemia Diabetes mellitus terminologist insulin use: without terminologist use Diabetes mellitus type: type 2 Qualified Code(s): E11.65 - Type 2 diabetes mellitus with hyperglycemia Code(s): E11.9 - Type 2 diabetes mellitus without complications Status: Acute Assessment and Plan: Discussed with Beth his hospitalist. She will continue working on further education for him and make him understand that it is important to control this as he had uncontrolled diabetes when he came in with a very high hemoglobin A1c.. Additional Plan Await return of full bowel activity Advance to full liquids since he had a bowel movement. Subjective Subjective Date/Time Seen: 07/04/21 16:54 Post Op day: 2 Patient reports: no new complaints, feels better, pain is less and flatus Interval history: Patient sitting up in bed. States he is not nauseated. Tolerating liquids. Admits that he has not walked in the [place] yet today. Review of Systems Review of Systems: All systems reviewed & are unremarkable except as noted in HPI and below Constitutional: Constitutional: Denies chills, Denies fever(s) and Denies headache(s) ENT: Denies headache(s) Cardiovascular: Cardiovascular: Denies chest pain, Denies diaphoresis, Denies dyspnea and Denies paroxysmal nocturnal dyspnea Respiratory: Respiratory: Denies chest congestion, Denies cough and Denies dyspnea Gastrointestinal: Gastrointestinal: Reports as per HPI, Denies heartburn, Denies nausea and Denies vomiting Integumentary/Breasts: Skin/Breast: Denies lesions and Denies rash Neurologic: Denies confusion, Denies headache(s) and Denies Sensory deficit (Neuro) Psychiatric: Psychiatric: Denies confusion Exam Const: General: cooperative, comfortable, no acute distress, alert and awake; No confusion Orientation/consciousness: patient oriented x3 and No confusion HENMT: Head: normal to inspection, normocephalic and atraumatic Ears: hearing grossly normal bilaterally and external ears normal General nose exam: Normal external nose present, no nasal discharge noted and no epistaxis Face and sinus: normal facial exam, face symmetric, no tenderness and dry mucous membranes Mouth: Yes Normal oral and palatal mucosa present, Yes moist mucous membranes and No tongue abnormal Eyes: Conjunctivae: conjunctivae normal Sclera: sclerae normal Pupils: Equal, round and reactive pupils present EOM: EOMs intact bilaterally Neck: Neck: normal visual inspection, nontender and no JVD Thyroid: thyroid normal and nontender Lymphatic: lymphadenopathy not noted Chest: Chest palpation & inspection: normal inspection of the chest, mass and no tenderness Resp: Effort & Inspection: normal respiratory effort, no audible wheezes, no cough and no pursed lip breathing Auscultation: clear to auscultation bilaterally Cardio: Jugular venous distension: no JVD Rate: regular rate Rhythm: regular rhythm Heart sounds: no gallops, no murmurs and no rubs GI: Inspection: no abdominal wall ecchymosis, non-distended, incision ( clean and dry with no surrounding erythema), scar ( Well-healed midline scar without obvious hernia) and other ( mildly tender in the epigastrium) [place]
[2021-07-05 02:48] VITALS: BP 118/77; PULSE 57; RESP 18; TEMP 36; O2SAT 100
[2021-07-05 07:21] LABS: Mean Platelet Volume 11.2 fl (7.4-10.4); Platelet Count Result 218 k/mm3 (150-375)
[2021-07-05 07:35] LABS: Anion Gap 7 mmol/L (8-16); Blood Urea Nitrogen 6 mg/dL (9-20); Calcium 8.6 mg/dL (8.4-10.2); Carbon Dioxide 27 mmol/L (22-30); Chloride 100 mmol/L (98-107); Estimated CRCL calculation 120 ml/min; Estimated Glomerular Filt Rate > 60; Glucose 269 mg/dL (65-110); Potassium 3.2 mmol/L (3.4-5.0); Sodium 134 mmol/L (137-145)
[2021-07-05 08:09] LABS: Glucose Point of Care 240 mg/dl (65-105)
[2021-07-05] MEDS: ENOXAPARIN 40 MG/0.4 ML SYRINGE SUB-Q (08:21)
[2021-07-05] MEDS: PANTOPRAZOLE 40 MG TABLET PO (08:21)
[2021-07-05] MEDS: INSULIN ASPART (*BKC) 100 UNITS/ML SUB-Q ×2 (08:22→12:18)
[2021-07-05 09:04] LABS: Magnesium 2.1 mg/dL (1.6-2.3)
[2021-07-05] MEDS: POTASSIUM CHLORIDE 20 MEQ TABLET 40 MEQ PO (09:30)
[2021-07-05 12:08] LABS: Glucose Point of Care 245 mg/dl (65-105)
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
--- NOTE | 2021-07-05 13:16 | PCDIET ---
Patient screened in for 7 day length of stay. Current nutrition has been advanced from full liquid diet to low fiber (low residue) diet with reported intake of 75%. Pt appears to be tolerating diet with adequate intake. Plans for pt to d/c today (07/05/21). Agree with diet orders at this time. No nutritional interventions at this time. No nutrition needs at this time. Will follow up in 7 days if pt is not d/c.
--- NOTE | 2021-07-06 07:04 | PC.NURSE ---
Out patient referral faxed to [facility] for Initial [facility].
== END 2021-07-05 14:04 | disposition home or self-care (01) | DRG 224 ==
LOC: ANHED 18:51 → ANH3MEDSUR 20:54
PROVIDERS: Emergency Medicine; Nurse Practitioner; Physician Assistant; Surgery; Admitting Provider Internal Medicine; Emergency Provider General Practice; Visit Provider Physician Assistant
PROC: 0DN84ZZ Release Small Intestine, Percutaneous Endoscopic Approach (ICD-10-PCS; CPT 49320; principal; 2021-07-02 15:30)
DX: K56.51 Intestinal adhesions [bands], with partial obstruction (principal); E11.65 Type 2 diabetes mellitus with hyperglycemia; Z20.822 Contact with and (suspected) exposure to COVID-19; Z79.4 Long term (current) use of insulin; Z88.0 Allergy status to penicillin
CPT/HCPCS: 36415; 74018; 74019; 74177; 74250; 80048; 80053; 81001; 82948; 83036; 83605; 83690; 83735; 84439; 84443; 84480; 85025; 85027; 85049; 88304; 96361; 96372; 96374; 96375; 96376; 99285; A9270; C9113; C9803; G0378; J0131; J0330; J1100; J1170; J1650; J1815; J1885; J2250; J2270; J2405; J2704; J2710; J3010; J3480; J7030; J7040; J7120; Q9967; U0003; U0005

== ENCOUNTER 2023-10-15 11:45 | Emergency (ER) | payer OTHER, SELFPAY ==
[2023-10-15 11:51] VITALS: BP 144/89; PULSE 96; RESP 16; TEMP 36.9; O2SAT 100
[2023-10-15 13:15] LABS: Appearance Urine Clear (Clear); Bilirubin Urine Negative (Negative); Blood Urine Negative (Negative); Color Urine Yellow (Yellow); Glucose Urine UA 3+ mg/dL (Negative); Ketones Urine 2+ mg/dL (Negative); Leukocyte Esterase Ur Negative LEU/UL (Negative); Nitrate Urine Negative (Negative); Protein Urine Negative (Negative); Urobilinogen Urine 0.2 mg/dL (<2.0)
[2023-10-15 13:26] LABS: Add Urine Microscopic? NO; Specific Grav Ur 1.043 (1.001-1.035)
[2023-10-15 13:51] LABS: Basophils Percent Auto 0.8 % (0.2-1.2); Eosinophils Absolute Auto 0.1 K/mm3 (0-0.3); Eosinophils Percent Auto 1.6 % (0-4.4); Hematocrit 45.2 % (42.0-52.0); Hemoglobin 14.9 g/dL (14.0-18.0); Immature Granulocyte Absolute 0.01 K/mm3 (0.00-0.031); Immature Granulocyte Percent A 0.2 % (0-0.5); Lymphocytes Absolute Auto 1.74 K/mm3 (0.9-3.2); Mean Corpuscular Hemoglobin 27.5 pg (26-34); Mean Corpuscular Volume 83.4 fl (80-100); Mean Platelet Volume 11.5 fl (7.4-10.4); Monocytes Absolute Auto 0.3 K/mm3 (0.1-0.6); Monocytes Percent Auto 6.4 % (2.6-8.5); Neutrophils Absolute Auto 2.9 K/mm3 (1.3-6.7); Platelet Count Result 230 k/mm3 (150-375); Red Blood Count 5.42 M/mm3 (4.6-6.20); Red Cell Distribution Width 12.1 % (11.5-14.5); White Blood Count 5.1 K/mm3 (4.5-10.0)
[2023-10-15 14:20] LABS: Alanine Aminotransferase 16 U/L (6-50); Alkaline Phosphatase 194 U/L (38-126); Anion Gap 7 mmol/L (4-12); Aspartate Amino Transferase 15 U/L (17-59); Bilirubin,Total 0.6 mg/dL (0.2-1.3); Blood Urea Nitrogen 10 mg/dL (9-20); Calcium 9.6 mg/dL (8.4-10.2); Carbon Dioxide 28 mmol/L (22-30); Chloride 100 mmol/L (98-107); Estimated CRCL calculation 107 ml/min; Estimated Glomerular Filt Rate > 60; Glucose 491 mg/dL (65-110); Potassium 4.5 mmol/L (3.4-5.0); Sodium 135 mmol/L (137-145)
[2023-10-15 14:42] LABS: Chlamydia trachomatis NOT DETECTED (NOT DETECTE); Neisseria gonorrhoeae PCR NOT DETECTED (NOT DETECTE)
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
[2023-10-15 15:22] VITALS: BP 128/95; PULSE 78; RESP 15; TEMP 36.9; O2SAT 100
== END 2023-10-15 15:24 | disposition home or self-care (01) ==
PROVIDERS: Emergency Provider Family Medicine
DX: N34.2 Other urethritis (principal); E11.65 Type 2 diabetes mellitus with hyperglycemia; J45.909 Unspecified asthma, uncomplicated; Z79.4 Long term (current) use of insulin; Z91.148 Patient's other noncompliance with medication regimen for other reason
CPT/HCPCS: 36415; 80053; 81003; 85025; 87491; 87591; 99283

== ENCOUNTER 2024-01-12 15:04 | Emergency (ER) | payer OTHER, SELFPAY ==
[2024-01-12 15:05] VITALS: BP 140/100; PULSE 100; RESP 18; TEMP 36.9; O2SAT 100
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
== END 2024-01-12 16:36 | disposition home or self-care (01) ==
LOC: ANHED 16:26
PROVIDERS: Emergency Provider Emergency Medicine
DX: E11.40 Type 2 diabetes mellitus with diabetic neuropathy, unspecified (principal); J45.909 Unspecified asthma, uncomplicated; Z79.4 Long term (current) use of insulin; Z79.84 Long term (current) use of oral hypoglycemic drugs
CPT/HCPCS: 99283